=== PATIENT | female | born 1935 | race Caucasian/White ===

== ENCOUNTER 2017-06-15 15:57 | Emergency (ER) | payer MEDICARE, BC ==
[2016-05-29 15:17] VITALS: Wt 77.1 kg
[~2017-06-15 15:57] MED LIST: ACET-2031 PO; ASP325 PO; ATOR40TA24 PO; AUG500 PO; AUG875 PO; BACDS PO; CIPR-326 PO; CRAN1CAP14 PO; CYCL10TA29 PO; DIPH-1 PO; DOXY150T6 PO; ENOX100D5 SQ; EYE VITAMIN; IBUP200C17 PO; LEV500 PO; LOR5 PO; MELO-149 PO; METH-543 PO; OCU PO; OM-31CAP PO; OMEP-218 PO; OMEP10CA38 PO; OXYC-865 PO; PARO-46 PO; PARO10TA78 PO; PER PO; PHENA200 PO; PRE20 PO; SIMV-44 PO; TRAM-420 PO; VIT1CAPS38 PO; WARF-1 PO; WARF2.5T11 PO
--- NOTE | 2017-06-15 15:59 | ER Report ---
History and Physical Time Seen By MD: 15:58 (MATTJAIRON YOUNG DO) HPI/ROS CHIEF COMPLAINT: fell HISTORY OF PRESENT ILLNESS: PT states that she was at her kitchen sink and turned and fell into the cabinet door. Hit her right upper cheek/lip. Pt unsure how she fell. Pt not sure of last tetnus shot. PT denies neck pain. + headache. Pt noted to have abrasion under right nares. while pt was talking was found to have some blood on her teeth. Pt was found to have 1cm laceration inner upper lip on right. Pt denies any feeling of loose teeth. pt denies cp, abd pain or weakness. no visiual changes REVIEW OF SYSTEMS: Constitutional: No fever, no chills. Eyes: No discharge. ENT: No sore throat. + pain right cheek/zygoma; + pain nose Cardiovascular: No chest pain, no palpitations. Respiratory: No cough, no shortness of breath. Gastrointestinal: No abdominal pain, no vomiting. Genitourinary: No hematuria. Musculoskeletal: No back pain. Skin: No rashes. Neurological: No headache. (MATTJAIRON YOUNG DO) Allergies: Coded Allergies: cefaclor (Verified Allergy, Intermediate, HIVES, 08/07/16) erythromycin base (Verified Allergy, Intermediate, HIVES, 08/07/16) Home Meds Active Scripts Paroxetine Hcl (PAROXETINE HCL) 20 Mg Tablet, 20 MG PO HS, #30 TAB Prov:ALO CRUZ MD 12/31/15 Reported Medications Ferrous Sulfate (FERROUS SULFATE) 325 Mg Tablet, 325 MG PO BID 06/15/17 Atorvastatin Calcium (ATORVASTATIN CALCIUM) 40 Mg Tablet, 1 TAB PO QDAY, TAB 06/15/17 Cranberry Conc/Ascorbic Acid (CRANBERRY + VIT C SOFTGEL) 1 Each Capsule, 1 EACH PO BID 09/18/12 Vit C/Anjelica Ac/Lut/Copper/Znox (PRESERVISION SOFTGEL) 1 Each Capsule, 1 EACH PO BID 09/18/12 Discontinued Scripts Tramadol Hcl (TRAMADOL HCL) 50 Mg Tablet, 50 MG PO Q4-6H Y for PAIN, #21 TAB Prov:JAIRON ALLISON DO 08/07/16 Methocarbamol (ROBAXIN-750) 750 Mg Tablet, 750 MG PO Q6-8H Y for MUSCLE SPASMS, #21 TAB Prov:JAIRON ALLISON DO 08/07/16 Past Medical/Surgical History Pmhx: migraines, hyperlipidemia, oxygen at night, pneumonia, reflux, fracture of the left hand, occasional alcohol use, depression, DVT. Pshx: appendectomy, tonsillectomy. (JAIRON ALLISON DO) Reviewed Nurses Notes: Yes Old Medical Records Reviewed: Yes (JAIRON ALLISON DO) Hx Smoking: No Hx Substance Use Disorder: No Hx Alcohol Use: Yes (COUPLE A MONTH) (JAIRON ALLISON DO) Constitutional Vital Sign - Last 24 Hours 06/15/17 06/15/17 06/15/17 06/15/17 16:00 16:01 16:27 16:57 Temp 97.9 Pulse 94 92 101 Resp 17 5 B/P (MAP) 157/90 (112) 157/90 Pulse Ox 93 90 87 O2 Delivery Room Air 06/15/17 06/15/17 06/15/17 06/15/17 17:27 17:57 18:02 18:19 Pulse 111 98 103 Resp 15 47 21 Pulse Ox 89 92 06/15/17 06/15/17 20:12 20:20 Pulse 90 85 Resp 19 16 B/P (MAP) 163/93 (116) 168/82 (110) Pulse Ox 95 95 O2 Delivery Room Air (NORMA PEREZ DO) Physical Exam General Appearance: The patient is alert, has no immediate need for airway protection and no signs of toxicity. Eyes: Pupils equal and round no pallor or injection, EOMI ENT: no pharyngeal erythema or exudates, Mucous membranes are moist, TM are nl b/l, neg hemotympanums, No septal hematoma noted; +1cm laceration identified in upper inner lip on tooth line Respiratory: There are no retractions, lungs are clear to auscultation. Cardiovascular: Regular rate and rhythm. pulses are equal and symmetrical Gastrointestinal: Abdomen is soft and non tender, no masses, bowel sounds normal, no guarding, no rigidity or rebound Neurological: Cranial nerves II-XII grossly intact, no sensory or motor loss, no pronator drift or dysmeteria Skin: Warm and dry, no rashes. Musculoskeletal: Neck is supple non tender, no vertebral tenderness Extremities are nontender, no nswollen and have full range of motion. DIFFERENTIAL DIAGNOSIS: After history and physical exam differential diagnosis was considered for lip laceartion, facial fx, cervical fx, intracranial injury (LAURORA,JAIRON V DO) Medical Decision Making Data Points Result Diagram: 06/15/17 1721 06/15/17 1721 Laboratory Hematology Test 06/15/17 17:21 Red Blood Count 5.72 M/uL (4.17-5.56) Mean Corpuscular Volume 86.9 fL (80.0-96.0) Mean Corpuscular Hemoglobin 28.7 pg (26.0-33.0) Mean Corpuscular Hemoglobin Concent 33.0 g/dL (32.0-36.0) Red Cell Distribution Width 15.3 % (11.5-14.5) Mean Platelet Volume 8.7 fL (7.2-11.1) Neutrophils (%) (Auto) 75.7 % (39.4-72.5) Lymphocytes (%) (Auto) 12.8 % (17.6-49.6) Monocytes (%) (Auto) 8.6 % (4.1-12.4) Eosinophils (%) (Auto) 2.3 % (0.4-6.7) Basophils (%) (Auto) 0.6 % (0.3-1.4) Nucleated RBC Relative Count (auto) 0.0 /100WBC Neutrophils # (Auto) 7.0 K/uL (2.0-7.4) Lymphocytes # (Auto) 1.2 K/uL (1.3-3.6) Monocytes # (Auto) 0.8 K/uL (0.3-1.0) Eosinophils # (Auto) 0.2 K/uL (0.0-0.5) Basophils # (Auto) 0.1 K/uL (0.0-0.1) Nucleated RBC Absolute Count (auto) 0.00 K/uL Prothrombin Time 12.0 seconds (12.0-14.4) Prothromb Time International Ratio 0.89 Activated Partial Thromboplast Time 28 seconds (23-35) Sodium Level 137 mmol/L (137-145) Potassium Level 3.8 mmol/L (3.5-5.0) Chloride Level 103 mmol/L (98-107) Carbon Dioxide Level 26 mmol/L (22-31) Blood Urea Nitrogen 16 mg/dl (7-18) Creatinine 0.70 mg/dl (0.52-1.04) Glomerular Filtration Rate Calc > 60.0 Random Glucose 109 mg/dl (75-110) Calcium Level 9.4 mg/dl (8.4-10.2) Total Bilirubin 0.4 mg/dl (0.2-1.3) Aspartate Amino Transf (AST/SGOT) 24 U/L (0-35) Alanine Aminotransferase (ALT/SGPT) 43 U/L (0-56) Alkaline Phosphatase 116 U/L (0-126) Troponin I < 0.012 ng/ml Total Protein 7.1 gm/dl (6.3-8.2) Albumin 3.9 g/dl (3.5-5.0) Chemistry Test 06/15/17 17:21 White Blood Count 9.2 k/uL (4.5-11.0) Red Blood Count 5.72 M/uL (4.17-5.56) Hemoglobin 16.4 g/dL (12.0-16.0) Hematocrit 49.7 % (34.0-47.0) Mean Corpuscular Volume 86.9 fL (80.0-96.0) Mean Corpuscular Hemoglobin 28.7 pg (26.0-33.0) Mean Corpuscular Hemoglobin Concent 33.0 g/dL (32.0-36.0) Red Cell Distribution Width 15.3 % (11.5-14.5) Platelet Count 190 K/uL (150-450) Mean Platelet Volume 8.7 fL (7.2-11.1) Neutrophils (%) (Auto) 75.7 % (39.4-72.5) Lymphocytes (%) (Auto) 12.8 % (17.6-49.6) Monocytes (%) (Auto) 8.6 % (4.1-12.4) Eosinophils (%) (Auto) 2.3 % (0.4-6.7) Basophils (%) (Auto) 0.6 % (0.3-1.4) Nucleated RBC Relative Count (auto) 0.0 /100WBC Neutrophils # (Auto) 7.0 K/uL (2.0-7.4) Lymphocytes # (Auto) 1.2 K/uL (1.3-3.6) Monocytes # (Auto) 0.8 K/uL (0.3-1.0) Eosinophils # (Auto) 0.2 K/uL (0.0-0.5) Basophils # (Auto) 0.1 K/uL (0.0-0.1) Nucleated RBC Absolute Count (auto) 0.00 K/uL Prothrombin Time 12.0 seconds (12.0-14.4) Prothromb Time International Ratio 0.89 Activated Partial Thromboplast Time 28 seconds (23-35) Glomerular Filtration Rate Calc > 60.0 Calcium Level 9.4 mg/dl (8.4-10.2) Total Bilirubin 0.4 mg/dl (0.2-1.3) Aspartate Amino Transf (AST/SGOT) 24 U/L (0-35) Alanine Aminotransferase (ALT/SGPT) 43 U/L (0-56) Alkaline Phosphatase 116 U/L (0-126) Troponin I < 0.012 ng/ml Total Protein 7.1 gm/dl (6.3-8.2) Albumin 3.9 g/dl (3.5-5.0) Coagulation Test 06/15/17 17:21 Prothrombin Time 12.0 seconds Prothromb Time International Ratio 0.89 Activated Partial Thromboplast Time 28 seconds (NORMA PEREZ DO) EKG/Imaging EKG Interpretation Sinus Tach @100 with first degree av block, pvc, lvh; similar to prior ekg on 10-20-16 Imaging see reports for details: Cervical: degenerative changes but nothing acute head: 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 The results of the study are EXAMINATION: MR brain without IV contrast HISTORY: Trouble finding words after a fall. COMPARISON: CT head of earlier today TECHNIQUE: Multi-planar, multi-sequence brain MRI was performed without IV contrast administration. FINDINGS: Brain volume: Mild generalized parenchymal atrophy. Sagittal midline structures: Normal. Ventricles: Normal in caliber for the degree of overlying cortical volume loss. Acute ischemic changes: None. Hemorrhage: There is some chronic hemosiderin deposition along the surface of the mid and upper cerebellum and extending along the basilar cisterns, compatible with sequela of remote hemorrhage. No evidence of acute intracranial hemorrhage. Masses / edema: None. Hillman-white: There is chronic encephalomalacia in the superior cerebellar vermis , compatible with old ischemia. White matter lesions: Scattered T2/FLAIR hyperintensity in the deep white matter bilaterally, compatible with chronic small vessel ischemic change. Vessels: Normal T2 flow voids along the central intracranial vasculature. Extra-axial: None. Calvarium / scalp: Negative. Skull base: Negative. Visualized sinuses / orbits: Mucosal thickening in the right maxillary sinus. Visualized upper neck: Negative. IMPRESSION: 1. No evidence of acute infarct or other acute intracranial pathology. 2. Mild parenchymal atrophy with chronic small vessel ischemic change. 2. Chronic ischemic changes in the superior cerebellum with some associated hemosiderin deposition, compatible with sequela of remote hemorrhage. The study was read by the radiologist. I viewed the images myself on the PACS system. (NORMA PEREZ DO) ED Course/Re-evaluation Clinical Indication for ER IV: IV Access ED Course 06/15/2017 4:31:49 pm Called to room by Nurse. PT was having some difficulty finding words for the nurse. On arrival to the room rechecked neuro exam and pt without facial droop, equal strength upper and lower 5/5, no pronator drift. Pt at this time is alert but did have trouble telling me her sons names "i cant remember" but could tell me that one is on vacation in [place], one is in [place] and one is in [place]. PT seems to be stumbling to find words "watch" but does find them just slower to respond. Discussed with pt my concern for possible stroke but pt denies. WIll start labs and send for stroke alert ct. 06/15/2017 5:28:54 pm PT now telling me that the cause of her fall was due to slipping on the rug in front of her sink. Pt does not recall the episode of confusion or that she was unable to tell me how she fell before. Awaiting imaging results. Unclear if pt has dementia, concussion or possible tia. 06/15/2017 5:49:52 pm Pt has old infarction on ct but no new bleed or acute findings. Pt did not know of her prior infarction. Pt seems more alert still no physical weakness. Will obtain MRI. Discussed the procedure with the patient and she seems to understand. told her her jewelary will need to be removed. 06/15/2017 6:01:14 pm Nurse came and told me that pt did not recall me talking to her just 15 minutes ago about her ct findngs. Went back in and pt is able to find her words but seems forgetful. MRI called in. 06/15/2017 6:02:40 pm signed out to dr. Perez pending mri (MATTHECTORJAIRON Walter MATA) ED Course Care was assumed at shift change with diagnostic MRI pending. Patient with altered mental status. Seems somewhat like dementia. Patient's mental status seems to be waxing and waning. Patient's MRI was negative for acute ischemic events. There is changes consistent with deep white matter disease. Patient also has some deposited hemosiderin which would suggest a previous bleed. I discussed the patient's results with herself and her son as well as her caregiver. I thought that she might benefit from an admission for observation for altered mental status changes, which she was reluctant to be admitted. Patient's discharged home. Her son and her caregiver advised to follow-up with Dr. Rose Macias geriatric specialist. Patient may need to have her driving privileges evaluated and relinquished. Patient needs further evaluation for dementia and potential treatment. Decision to Disposition Date: Jun 15, 2017 Decision to Disposition Time: 19:48 (NORMA PEREZ DO) Depart Departure Latest Vital Signs Vital Signs Date Time Temp Pulse Resp B/P (MAP) Pulse Ox O2 Delivery O2 Flow Rate FiO2 06/15/17 20:20 85 16 168/82 (110) 95 Room Air 06/15/17 16:01 97.9 (NORMA PEREZ DO) Impression: Primary Impression: Lip laceration Additional Impressions: Facial contusion Altered mental status, unspecified Dementia Condition: Improved Disposition: HOME OR SELF-CARE Referrals: ROSE MACIAS MD Patient Instructions: Facial Contusion (ED), Facial Laceration (ED) Additional Instructions: Follow-up with Dr. Rose Macias for evaluation of dementia and consideration of revoking driving privileges within 1-2 weeks Problem Qualifiers Primary Impression: Lip laceration Encounter type: initial encounter Qualified Codes: S01.511A - Laceration without foreign body of lip, initial encounter Additional Impressions: Facial contusion Encounter type: initial encounter Qualified Codes: S00.83XA - Contusion of other part of head, initial encounter Altered mental status, unspecified Altered mental status type: unspecified Qualified Codes: R41.82 - Altered mental status, unspecified Dementia Dementia type: unspecified type Dementia behavioral disturbance: without behavioral disturbance Qualified Codes: F03.90 - Unspecified dementia without behavioral disturbance JAIRON ALLISON V DO Jun 15, 2017 15:59 NORMA PEREZ DO Jun 15, 2017 19:54
--- NOTE | 2017-06-15 16:44 | EKG ---
FACILITY: [facility] PATIENT NAME: LOURDES VEE : [id number] MR: [id number] V: [id number] EXAM DATE: ORDERING PHYSICIAN: JAIRON ALLISON TECHNOLOGIST: LYNDSEY Barbosa Reason : SYNCOPE Blood Pressure : / mmHG Vent. Rate : 101 BPM Atrial Rate : 101 BPM P-R Int : 210 ms QRS Dur : 102 ms QT Int : 344 ms P-R-T Axes : 041 000 031 degrees QTc Int : 446 ms Sinus tachycardia with 1st degree AV block Premature ventricular complex Decreased R wave progression anteriorly Abnormal ECG Confirmed by TESSA CRUZ ([id number]) on 06/15/2017 6:38:15 PM Referred By: KEEGAN Confirmed By:TESSA CRUZ
--- NOTE | 2017-06-15 17:21 | RADIOLOGY IMAGING REPORT ---
FACILITY: [facility] - [place] PATIENT NAME: Marie Dupont : 1935 MR: [id number] V: [id number] EXAM DATE: ORDERING PHYSICIAN: JAIRON ALLISON TECHNOLOGIST: Location: [facility] - [place] Patient: Marie Dupont : 1935 Visit/Account:[id number] Date of Sevice: 06/15/2017 EXAMINATION: CT head without IV contrast HISTORY: Fall. TECHNIQUE: Axial CT images of the head were obtained from the vertex to the skull base without IV c ontrast, with coronal and sagittal 2D reconstructed images. One of the following dose optimization techniques was utilized in the performance of this exam: Autom ated exposure control; adjustment of the mA and/or kV according to the patient's size; or use of an i terative reconstruction technique. Specific details can be referenced in the facility's radiology C T exam operational policy. COMPARISON: 08/07/2016. FINDINGS: There is mild age-appropriate parenchymal volume loss, with stable patchy low attenuation throughout the deep white matter, compatible with chronic small vessel ischemic change. Stable small focus of ch ronic encephalomalacia along the superior cerebellar vermis, compatible with old infarct. No CT evidence of intracranial hemorrhage, mass lesion, or acute infarct. No midline shift or extra-a xial fluid collections. Hillman-white differentiation is maintained. The calvarium is intact. No skull fracture. IMPRESSION: 1. No CT evidence of acute intracranial pathology. 2. 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 Report Dictated By: Shaggy Piedra MD at 06/15/2017 5:08 PM Report E-Signed By: Shaggy Piedra MD at 06/15/2017 5:18 PM WSN:[id number]
--- NOTE | 2017-06-15 17:26 | RADIOLOGY IMAGING REPORT ---
FACILITY: [facility] PATIENT NAME: Marie Dupont : 1935 MR: [id number] V: [id number] EXAM DATE: ORDERING PHYSICIAN: JAIRON ALLISON TECHNOLOGIST: Location: [facility] Patient: Marie Dupont : 1935 Visit/Account:[id number] Date of Sevice: 06/15/2017 EXAMINATION: CT facial bones without IV contrast HISTORY: Fall. Technique: Axial CT images of the facial bones were obtained without IV contrast, from the superior o rbits through the mandible, with coronal and sagittal 2D reconstructed images. One of the following dose optimization techniques was utilized in the performance of this exam: Autom ated exposure control; adjustment of the mA and/or kV according to the patient's size; or use of an i terative reconstruction technique. Specific details can be referenced in the facility's radiology C T exam operational policy. COMPARISON: CT head 08/07/2016. FINDINGS: There is stable mild chronic irregularity of both nasal bones which may relate to old trauma. No acut e nasal bone fracture. The bony orbits are intact. The zygomatic arches and pterygoid plates are unremarkable. The maxilla and mandible are intact. Norm al alignment at the temporomandibular joints. Moderate mucosal thickening in the right maxillary sinus. The paranasal sinuses and mastoid air cells are otherwise unopacified. The skull base is intact. Soft tissue swelling along the right cheek and upper lip. IMPRESSION: 1. No evidence of acute facial fracture. 2. Mild chronic appearing irregularity of both nasal bones may relate to old trauma but is unchanged from the prior exam. 3. Soft tissue swelling along the right cheek and upper lip. 4. Mucosal thickening in the right maxillary sinus. Report Dictated By: Shaggy Piedra MD at 06/15/2017 5:18 PM Report E-Signed By: Shaggy Piedra MD at 06/15/2017 5:23 PM WSN:[id number]
[2017-06-15 17:28] LABS: PLATELET COUNT, AUTOMATED 190 K/uL (150-450)
--- NOTE | 2017-06-15 17:29 | RADIOLOGY IMAGING REPORT ---
FACILITY: [facility] - [place], [place] PATIENT NAME: Marie Dupont : 1935 MR: [id number] V: [id number] EXAM DATE: ORDERING PHYSICIAN: JAIRON ALLISON TECHNOLOGIST: Location: [facility] [place] Patient: Marie Dupont : 1935 Visit/Account:[id number] Date of Sevice: 06/15/2017 EXAMINATION: CT cervical spine without IV contrast HISTORY: Fall. TECHNIQUE: Thin axial CT images of the cervical spine were obtained without IV contrast, with sagit thierry and coronal 2D reconstructed images. One of the following dose optimization techniques was utilized in the performance of this exam: Autom ated exposure control; adjustment of the mA and/or kV according to the patient's size; or use of an i terative reconstruction technique. Specific details can be referenced in the facility's radiology C T exam operational policy. COMPARISON: 08/07/2016. FINDINGS: The cervical spine is negative for acute fracture or subluxation. Vertebral body height is maintained . Stable alignment. There is stable mild chronic anterolisthesis of C3 on C4 measuring 3 mm, and C4 on C5 measuring 3 mm. Stable spondylotic changes. There is moderate disc space narrowing at C5-C6 and C6-C7. Multilevel fac et arthropathy bilaterally. The dens is intact. Normal alignment at the craniocervical junction. IMPRESSION: 1. No acute osseous findings along the cervical spine. 2. Stable chronic degenerative changes, greatest at C5-C6 and C6-C7. Report Dictated By: Shaggy Piedra MD at 06/15/2017 5:23 PM Report E-Signed By: Shaggy Piedra MD at 06/15/2017 5:25 PM WSN:[id number]
[2017-06-15 17:38] LABS: INR 0.89
[2017-06-15] MEDS ORDERED: ATOR40TA69 PO (17:49)
[2017-06-15] MEDS ORDERED: FERR-53 PO (17:49)
[2017-06-15] MEDS ORDERED: GADOBENATE 529MG/1ML 15ML VIAL IVP ONE (18:25)
[2017-06-15] MEDS ORDERED: NS 0.9% 20 ML SDV 40 ML ONE (18:25)
--- NOTE | 2017-06-15 19:33 | RADIOLOGY IMAGING REPORT ---
FACILITY: [facility] - [place] PATIENT NAME: Marie Dupont : 1935 MR: [id number] V: [id number] EXAM DATE: ORDERING PHYSICIAN: JAIRON ALLISON TECHNOLOGIST: Location: [facility] - [place] Patient: Marie Dupont : 1935 Visit/Account:[id number] Date of Sevice: 06/15/2017 EXAMINATION: MR brain without IV contrast HISTORY: Trouble finding words after a fall. COMPARISON: CT head of earlier today TECHNIQUE: Multi-planar, multi-sequence brain MRI was performed without IV contrast administration. FINDINGS: Brain volume: Mild generalized parenchymal atrophy. Sagittal midline structures: Normal. Ventricles: Normal in caliber for the degree of overlying cortical volume loss. Acute ischemic changes: None. Hemorrhage: There is some chronic hemosiderin deposition along the surface of the mid and upper cere bellum and extending along the basilar cisterns, compatible with sequela of remote hemorrhage. No gomez dence of acute intracranial hemorrhage. Masses / edema: None. Hillman-white: There is chronic encephalomalacia in the superior cerebellar vermis, compatible with old ischemia. White matter lesions: Scattered T2/FLAIR hyperintensity in the deep white matter bilaterally, compat ible with chronic small vessel ischemic change. Vessels: Normal T2 flow voids along the central intracranial vasculature. Extra-axial: None. Calvarium / scalp: Negative. Skull base: Negative. Visualized sinuses / orbits: Mucosal thickening in the right maxillary sinus. Visualized upper neck: Negative. IMPRESSION: 1. No evidence of acute infarct or other acute intracranial pathology. 2. Mild parenchymal atrophy with chronic small vessel ischemic change. 2. Chronic ischemic changes in the superior cerebellum with some associated hemosiderin deposition, c ompatible with sequela of remote hemorrhage. Report Dictated By: Shaggy Piedra MD at 06/15/2017 7:22 PM Report E-Signed By: Shaggy Piedra MD at 06/15/2017 7:29 PM WSN:[id number]
[2017-06-15 20:20] VITALS: BP 168/82
--- NOTE | 2017-06-15 20:46 | RADIOLOGY IMAGING REPORT ---
FACILITY: [facility] PATIENT NAME: Marie Dupont : 1935 MR: [id number] V: [id number] EXAM DATE: ORDERING PHYSICIAN: JAIRON ALLISON TECHNOLOGIST: Location: [facility] Patient: Marie Dupont : 1935 Visit/Account:[id number] Date of Sevice: 06/15/2017 EXAMINATION: MRA head without IV contrast HISTORY: Trouble finding words after a fall. COMPARISON: MR brain without IV contrast and CT head without IV contrast performed earlier today TECHNIQUE: [id number]-flight angiography was performed in the axial plane on the [place] of [place] without IV edith olinium. The exam was tailored for assessment of the [place] of [place] only. Only limited sequences were obtai adam of the rest of the brain. FINDINGS: Petrous carotids: Negative. Carotid siphons / bifurcations: Negative. Anterior / Posterior communicating arteries: Negative. Anterior cerebral arteries: Negative. Middle cerebral arteries: Negative. Intra-cranial vertebral arteries: Negative. Basilar artery: Negative. PICA / AICA / SCA / P[employer]BER: Negative. IMPRESSION: Unremarkable brain MRA. No evidence of vascular occlusive disease, aneurysm, or stenosis. Report Dictated By: Shaggy Piedra MD at 06/15/2017 8:39 PM Report E-Signed By: Shaggy Piedra MD at 06/15/2017 8:42 PM WSN:[id number]
--- NOTE | 2017-06-15 20:57 | RADIOLOGY IMAGING REPORT ---
FACILITY: [facility] PATIENT NAME: Marie Dupont : 1935 MR: [id number] V: [id number] EXAM DATE: ORDERING PHYSICIAN: NORMA SAL TECHNOLOGIST: Location: [facility] - [place] Patient: Marie Dupont : 1935 Visit/Account:[id number] Date of Sevice: 06/15/2017 EXAMINATION: MRA of the neck without IV contrast MRA of the neck with IV contrast HISTORY: Confusion. COMPARISON: None. TECHNIQUE: A preliminary fat suppressed axial sequence was obtained in the mid-upper neck (for asses sment of dissection) followed by non-gadolinium enhanced 3D-time of flight angiography in the axial p israel on the carotid bifurcations. The patient received a bolus of intravenous gadolinium during which coronal 3D-time of flight angiography was performed from the aortic arch through the [place] of [place] s. 3D and 2D sagittal and coronal reformatted images were obtained form the source data. Application Design Engineer images have been stored on PACS. Stenosis of the internal carotid arteries are calculated using MELANIE CET criteria. Contrast: 15 mL of IV MultiHance FINDINGS: Image quality is partially degraded by patient motion artifact. Angiographic Findings: Aortic arch / great vessel origins: Negative. Right common carotid: Negative. Right internal carotid: Mildly tortuous. Patent and normal in caliber, without evidence of stenosis. Right external carotid: Negative. Left common carotid: Negative. Left internal carotid: Mildly tortuous. Patent and normal in caliber, without evidence of stenosis. Left external carotid: Negative. Vertebrals / basilar: Negative. [place]: Negative. Non-angiographic Findings: None significant. IMPRESSION: Normal MRA of the neck, allowing for mild motion artifact.. Report Dictated By: Shaggy Piedra MD at 06/15/2017 8:48 PM Report E-Signed By: Shaggy Piedra MD at 06/15/2017 8:53 PM WSN:[id number]
== END 2017-06-15 20:23 | disposition home or self-care (01) ==
LOC: ER 16:12
DX: S01.511A Laceration without foreign body of lip, initial encounter (principal); S00.31XA Abrasion of nose, initial encounter; R41.82 Altered mental status, unspecified; F03.90 Unspecified dementia, unspecified severity, without behavioral disturbance, psychotic disturbance, mood disturbance, and anxiety; W01.198A Fall on same level from slipping, tripping and stumbling with subsequent striking against other object, initial encounter; Y93.E9 Activity, other interior property and clothing maintenance; Y92.000 Kitchen of unspecified non-institutional (private) residence as the place of occurrence of the external cause; Y99.8 Other external cause status
CPT/HCPCS: 36415; 70450; 70486; 70544; 70549; 70551; 72125; 84484; 85025; 85610; 85730; 93005; 99284; A9577; J7050; 82040; 82247; 82310; 82374; 82435; 82565; 82947; 84075; 84132; 84155; 84295; 84450; 84460; 84520

== ENCOUNTER 2017-08-04 09:22 | Inpatient (IN) | payer MEDICARE, BC ==
[~2017-08-04] VITALS: Ht 170.2 cm; Wt 77.4 kg
[~2017-08-04 09:22] MED LIST changes: +ATOR40TA69 PO; +FERR-53 PO
--- NOTE | 2017-08-04 09:30 | ER Report ---
History and Physical Time Seen By MD: 09:30 HPI/ROS 82 y/o female presents with pain and swelling in her LLE. No chest pain, and no SOB. No PE risk factors, but caregiver says she site on a tall stool most of the day. Pain and swelling is such that she is almost unable to ambulate. SHe lives alone. Has a caregiver Fri-Friday for [id number]. No other complaints. No recent trauma. No fever/chills. Remainder of the 14 system rev: Yes Allergies: Coded Allergies: cefaclor (Verified Allergy, Intermediate, HIVES, 08/04/17) erythromycin base (Verified Allergy, Intermediate, HIVES, 08/04/17) Home Meds Active Scripts Paroxetine Hcl (PAROXETINE HCL) 20 Mg Tablet, 20 MG PO HS, #30 TAB Prov:ALO CRUZ MD 12/31/15 Reported Medications Ferrous Sulfate (FERROUS SULFATE) 325 Mg Tablet, 325 MG PO BID 06/15/17 Atorvastatin Calcium (ATORVASTATIN CALCIUM) 40 Mg Tablet, 1 TAB PO QDAY, TAB 06/15/17 Cranberry Conc/Ascorbic Acid (CRANBERRY + VIT C SOFTGEL) 1 Each Capsule, 1 EACH PO BID 09/18/12 Vit C/Anjelica Ac/Lut/Copper/Znox (PRESERVISION SOFTGEL) 1 Each Capsule, 1 EACH PO BID 09/18/12 Reviewed Nurses Notes: Yes Old Medical Records Reviewed: Yes Hx Smoking: No Hx Substance Use Disorder: No Hx Alcohol Use: Yes (COUPLE A MONTH) Constitutional Vital Sign - Last 24 Hours 08/04/17 08/04/17 08/04/17 08/04/17 09:28 09:32 10:00 10:30 Temp 97.6 Pulse 108 98 Resp 16 B/P (MAP) 147/94 147/94 (111) 144/91 (108) 130/86 (101) Pulse Ox 90 93 O2 Delivery Room Air 08/04/17 11:00 Pulse 94 B/P (MAP) 129/89 (102) Pulse Ox 92 Physical Exam GE: Alert and oriented in NAD HEENT: PERRL CV: Tachycardic, RR, no m/r/g Lungs: cta b/l Extremities: LLE enlarged with TTP from the inguinal region to the foot. Pulses symmetric DDX: DVT, PE, edema Medical Decision Making Data Points Result Diagram: 08/04/17 1030 08/04/17 1030 Laboratory Hematology Test 08/04/17 10:30 Red Blood Count 5.44 M/uL (4.17-5.56) Mean Corpuscular Volume 85.2 fL (80.0-96.0) Mean Corpuscular Hemoglobin 29.1 pg (26.0-33.0) Mean Corpuscular Hemoglobin Concent 34.1 g/dL (32.0-36.0) Red Cell Distribution Width 15.5 % (11.5-14.5) Mean Platelet Volume 8.8 fL (7.2-11.1) Neutrophils (%) (Auto) 75.5 % (39.4-72.5) Lymphocytes (%) (Auto) 6.9 % (17.6-49.6) Monocytes (%) (Auto) 15.9 % (4.1-12.4) Eosinophils (%) (Auto) 0.9 % (0.4-6.7) Basophils (%) (Auto) 0.8 % (0.3-1.4) Nucleated RBC Relative Count (auto) 0.0 /100WBC Neutrophils # (Auto) 7.2 K/uL (2.0-7.4) Lymphocytes # (Auto) 0.7 K/uL (1.3-3.6) Monocytes # (Auto) 1.5 K/uL (0.3-1.0) Eosinophils # (Auto) 0.1 K/uL (0.0-0.5) Basophils # (Auto) 0.1 K/uL (0.0-0.1) Nucleated RBC Absolute Count (auto) 0.00 K/uL Sodium Level 136 mmol/L (137-145) Potassium Level 3.5 mmol/L (3.5-5.0) Chloride Level 100 mmol/L (98-107) Carbon Dioxide Level 23 mmol/L (22-31) Blood Urea Nitrogen 14 mg/dl (7-18) Creatinine 0.60 mg/dl (0.52-1.04) Glomerular Filtration Rate Calc > 60.0 Random Glucose 147 mg/dl (75-110) Calcium Level 9.9 mg/dl (8.4-10.2) Total Bilirubin 1.3 mg/dl (0.2-1.3) Aspartate Amino Transf (AST/SGOT) 28 U/L (0-35) Alanine Aminotransferase (ALT/SGPT) 42 U/L (0-56) Alkaline Phosphatase 140 U/L (0-126) Total Protein 6.9 gm/dl (6.3-8.2) Albumin 3.6 g/dl (3.5-5.0) Chemistry Test 08/04/17 10:30 White Blood Count 9.5 k/uL (4.5-11.0) Red Blood Count 5.44 M/uL (4.17-5.56) Hemoglobin 15.8 g/dL (12.0-16.0) Hematocrit 46.4 % (34.0-47.0) Mean Corpuscular Volume 85.2 fL (80.0-96.0) Mean Corpuscular Hemoglobin 29.1 pg (26.0-33.0) Mean Corpuscular Hemoglobin Concent 34.1 g/dL (32.0-36.0) Red Cell Distribution Width 15.5 % (11.5-14.5) Platelet Count 167 K/uL (150-450) Mean Platelet Volume 8.8 fL (7.2-11.1) Neutrophils (%) (Auto) 75.5 % (39.4-72.5) Lymphocytes (%) (Auto) 6.9 % (17.6-49.6) Monocytes (%) (Auto) 15.9 % (4.1-12.4) Eosinophils (%) (Auto) 0.9 % (0.4-6.7) Basophils (%) (Auto) 0.8 % (0.3-1.4) Nucleated RBC Relative Count (auto) 0.0 /100WBC Neutrophils # (Auto) 7.2 K/uL (2.0-7.4) Lymphocytes # (Auto) 0.7 K/uL (1.3-3.6) Monocytes # (Auto) 1.5 K/uL (0.3-1.0) Eosinophils # (Auto) 0.1 K/uL (0.0-0.5) Basophils # (Auto) 0.1 K/uL (0.0-0.1) Nucleated RBC Absolute Count (auto) 0.00 K/uL Glomerular Filtration Rate Calc > 60.0 Calcium Level 9.9 mg/dl (8.4-10.2) Total Bilirubin 1.3 mg/dl (0.2-1.3) Aspartate Amino Transf (AST/SGOT) 28 U/L (0-35) Alanine Aminotransferase (ALT/SGPT) 42 U/L (0-56) Alkaline Phosphatase 140 U/L (0-126) Total Protein 6.9 gm/dl (6.3-8.2) Albumin 3.6 g/dl (3.5-5.0) EKG/Imaging Imaging US LLE: almost fully occlusive DVT from the left RAILCAR SWITCHMAN to the calf CTA: No PE ED Course/Re-evaluation ED Course New diagnosis of DVT, almost fully occlusive. No PE on CTA. Given Xarolto 15mg in the ED with the plan to discharge the patient to home. However, after watching the patient ambulate, she is at risk for falling due to the pain and swelling in her left leg. Will need admission for inability to ambulate safely in the setting of a DVT. Decision to Disposition Date: Aug 04, 2017 Decision to Disposition Time: 14:03 Depart Departure Latest Vital Signs Vital Signs Date Time Temp Pulse Resp B/P (MAP) Pulse Ox O2 Delivery O2 Flow Rate FiO2 08/04/17 11:00 94 129/89 (102) 92 08/04/17 09:28 97.6 16 Room Air Impression: Primary Impression: DVT (deep venous thrombosis) Condition: Improved Disposition: Admitted from ER Problem Qualifiers Primary Impression: DVT (deep venous thrombosis) DVT location: lower extremity Affected thrombotic vein of extremity: femoral Chronicity: acute Laterality: left Qualified Codes: I82.412 - Acute embolism and thrombosis of left femoral vein WEI MARK MD Aug 04, 2017 09:30
[2017-08-04 10:43] LABS: PLATELET COUNT, AUTOMATED 167 K/uL (150-450)
[2017-08-04] MEDS ORDERED: RIVAROXABAN 10 MG TAB PO ONE ×2 (11:30→11:35)
--- NOTE | 2017-08-04 11:35 | RADIOLOGY IMAGING REPORT ---
FACILITY: [facility] - [place], [place] PATIENT NAME: Marie Dupont : 1935 MR: [id number] V: [id number] EXAM DATE: ORDERING PHYSICIAN: WEI MARK TECHNOLOGIST: Location: [facility] - [place] Patient: Marie Dupont : 1935 Visit/Account:[id number] Date of Sevice: 08/04/2017 Exam type: VENOUS DOPP LOW LEFT EXTREMITY History: swollen left leg Comparison: April 09, 2016. Findings: Left common femoral vein, greater saphenous vein, superficial femoral vein, popliteal vein, peroneal vein posterior tibial vein are all noncompressible consistent with DVT. The left anterior tibial vei n was partially compressible. There is extensive edema in the left calf IMPRESSION: 1. Extensive DVT throughout the left lower extremity from the left common femoral vein into the calf veins as detailed above Results were called to WEI MARK at 08/04/2017 11:31 AM. Report Dictated By: Martine Redmond MD at 08/04/2017 11:24 AM Report E-Signed By: Martine Redmond MD at 08/04/2017 11:31 AM WSN:[email or web address]
[2017-08-04] MEDS ORDERED: IOPAMIDOL 76% 75 ML INFUS BTL 75 ML ONE (11:56)
--- NOTE | 2017-08-04 12:53 | RADIOLOGY IMAGING REPORT ---
FACILITY: [facility] - [place] PATIENT NAME: Marie Dupont : 1935 MR: [id number] V: [id number] EXAM DATE: ORDERING PHYSICIAN: WEI MARK TECHNOLOGIST: Location: [facility] - [place] Patient: Marie Dupont : 1935 Visit/Account:[id number] Date of Sevice: 08/04/2017 CT angiogram chest with contrast Indication: Diagnosed DVT with shortness of breath and tachycardia. Comparison: 05/27/2016. Technique: Axial CT images are obtained through the chest after administration of 75 mL Isovue 370 IV contrast. Reformatted coronal and sagittal images were reviewed as well as coronal MIP images. One of the following dose optimization techniques was utilized in the performance of this exam: auto mated exposure control; adjustment of the mA and/or kV according to the patient's size; or use of an iterative reconstruction technique. Specific details can be referenced in the facility's radiology C T exam operational policy. FINDINGS: No evidence of filling defect within the pulmonary vasculature to suggest pulmonary embolus. The heart is mildly diffusely enlarged without pericardial effusion. The left ventricle measures 4. C entimeters and the right ventricle measures 4.2 cm. The aorta shows no aneurysm or dissection. The me diastinum and hilar regions show no enlarged lymph nodes or abnormal density. The left lower lobe does show early consolidation. This appears stable previous exam. Mild dependent atelectasis seen bilaterally. No other areas of consolidation. No pneumothorax, pleural effusion or d iscrete nodule. The airways are clear. Bony structures show no acute fractures or discrete lesions. Chest wall shows no enlarged axillary ly mph nodes or masses. The right thyroid again shows a 2.8 cm hypodense nodule. Moderate hiatal hernia is again present. Question of a small gallstone which is faintly visualized. T he upper abdomen is otherwise unremarkable. IMPRESSION: 1. No evidence of pulmonary embolus. 2. Early consolidation in the left lower lobe. This is unchanged from the previous exam and most like ly due to atelectasis and less likely pneumonia. 3. Stable mild cardiomegaly. 4. Probable cholelithiasis. 5. Stable moderate hiatal hernia. 6. Continued 2.8 cm right thyroid hypodense nodule. ACR recommendations for incidental thyroid nodule and CT or MRI without suspicious features, no nodule invasion or lymphadenopathy: -Age less than 35 recommend thyroid ultrasound for nodule greater than or equal to 1 cm. No follow-up for nodules less than 1 cm. -Age greater than 35 recommend thyroid ultrasound for nodules greater than or equal to 1.5 cm. No fol low-up for nodules less than 1.5 cm. Report Dictated By: Hansel Wells at 08/04/2017 12:33 PM Report E-Signed By: Hansel Wells at 08/04/2017 12:48 PM WSN:[id number]
[2017-08-04 15:03] VITALS: BP 163/93
[2017-08-04] MEDS ORDERED: NS(*) 0.9% 1000 ML BAG 1,000 ML IV PRN (16:06)
--- NOTE | 2017-08-04 16:57 | History & Physical ---
History of Present Illness Chief Complaint Left leg pain and swelling. History of Present Illness The patient is an 82 year old female who presented to ER earlier today with her caregiver with complaints of L leg pain and swelling. The patient is unable to give any acute history due to short term memory issues. Per the EMR she has history of DVT of the left femoral vein and has been on warfarin in the past for this. She currently denies chest pain or shortness of breath. Per the ER notes, she was sitting on a tall stool for a prolonged period of time prior to developing symptoms. She is not currently on anticoagulants. In the ER, a venous doppler showed extensive clot in the left leg (see venogram report below). CTA of the chest did not show pulmonary embolism. The patient was unable to ambulate due to severe pain and swelling. She was recommended for admission. 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 (3) Thyroid cyst Status: Chronic (4) Hyperlipidemia Status: Chronic (5) Depression Status: Chronic (6) History of UTI Status: Resolved (7) History of pneumonia Status: Resolved (8) Hiatal hernia Status: Chronic Home Meds Active Scripts Paroxetine Hcl (PAROXETINE HCL) 20 Mg Tablet, 20 MG PO HS, #30 TAB Prov:ALO CRUZ MD 12/31/15 Reported Medications Ferrous Sulfate (FERROUS SULFATE) 325 Mg Tablet, 325 MG PO BID 06/15/17 Atorvastatin Calcium (ATORVASTATIN CALCIUM) 40 Mg Tablet, 1 TAB PO QDAY, TAB 06/15/17 Cranberry Conc/Ascorbic Acid (CRANBERRY + VIT C SOFTGEL) 1 Each Capsule, 1 EACH PO BID 09/18/12 Vit C/Anjelica Ac/Lut/Copper/Znox (PRESERVISION SOFTGEL) 1 Each Capsule, 1 EACH PO BID 09/18/12 Allergies: Coded Allergies: cefaclor (Verified Allergy, Intermediate, HIVES, 08/04/17) erythromycin base (Verified Allergy, Intermediate, HIVES, 08/04/17) Patient History: FH: SC (myocardial infarction) FH: bilateral hip replacements BROTHER OR SISTER FH: diverticulitis MOTHER, FH: total knee replacement BROTHER OR SISTER No pertinent family history BROTHER OR SISTER CHILD CHILD CHILD Other Social/Family Hx The patient is and lives at home alone with caretakers and help from her family. Hx Smoking: No Hx Alcohol Use: Yes (COUPLE A MONTH) Hx Substance Use Disorder: No History of IV Drug Use: No Review of Systems All Systems Reviewed/Normal: Yes, Except as Noted Neurological: Confusion, Other (Dementia.) Cardiovascular: No Chest Pain Respiratory: No Shortness of Breath, No Cough Musculoskeletal: Pain (L leg.) Psychiatric: Depression Exam Vital Signs Vital Signs Date Time Temp Pulse Resp B/P (MAP) Pulse Ox O2 Delivery O2 Flow Rate FiO2 08/04/17 16:05 90 Room Air 08/04/17 15:03 98.6 95 16 163/93 (116) General Appearance: Alert, Awake, No Acute Distress, Afebrile Neuro: No Gross deficits Eyes: PERRLA Cardiovascular: Regular Rate and Rhythm Respiratory: Clear to Auscultation GI: Abd Soft and Non-Tender Extremities: Warm, Perfused, Edema (L leg with tenderness to palpation of calf. Swelling extends into her thigh.) Integumentary: Generalized Fragile Skin Psych: Appropriate Mood & Affect Medical Decision Making Data Points Result Diagram: 08/04/17 1030 08/04/17 1030 Item Value Date Time Urine Color Yellow 12/31/15 1505 Urine Clarity Clear 12/31/15 1505 Urine pH 6.0 pH 12/31/15 1505 Urine Specific [place] 1.013 12/31/15 1505 Urine Protein Negative mg/dL 12/31/15 1505 Urine Glucose (UA) Negative mg/dL 12/31/15 1505 Urine Ketones 20 mg/dL H 12/31/15 1505 Urine Blood Negative 12/31/15 1505 Urine Nitrite Negative 12/31/15 1505 Urine Bilirubin Negative 12/31/15 1505 Urine Urobilinogen 2.0 mg/dL 12/31/15 1505 Urine Leukocyte Esterase Trace H 12/31/15 1505 Urine RBC 2 /HPF 12/31/15 1505 Urine WBC 9 /HPF 12/31/15 1505 Urine Squamous Epithelial Cells Many /LPF H 12/31/15 1505 Urine Transitional Epithelial Cells Moderate /LPF H 12/31/15 1505 Urine Bacteria Negative /HPF 12/31/15 1505 Urine Mucus Few /HPF 12/31/15 1505 Calcium Level 9.9 mg/dl 08/04/17 1030 Total Bilirubin 1.3 mg/dl 08/04/17 1030 Aspartate Amino Transf (AST/SGOT) 28 U/L 08/04/17 1030 Alanine Aminotransferase (ALT/SGPT) 42 U/L 08/04/17 1030 Alkaline Phosphatase 140 U/L H 08/04/17 1030 Total Protein 6.9 gm/dl 08/04/17 1030 Albumin 3.6 g/dl 08/04/17 1030 EKG / Imaging Imaging FACILITY: [facility] PATIENT NAME: Marie Dupont : 1935 MR: [id number] V: [id number] EXAM DATE: [id number] ORDERING PHYSICIAN: WEI MARK TECHNOLOGIST: Location: [facility] Patient: Marie Dupont : 1935 Visit/Account:[id number] Date of Sevice: 08/04/2017 Exam type: VENOUS DOPP LOW LEFT EXTREMITY History: swollen left leg Comparison: April 09, 2016. Findings: Left common femoral vein, greater saphenous vein, superficial femoral vein, popliteal vein, peroneal vein posterior tibial vein are all noncompressible consistent with DVT. The left anterior tibial vein was partially compressible. There is extensive edema in the left calf IMPRESSION: 1. Extensive DVT throughout the left lower extremity from the left common femoral vein into the calf veins as detailed above Results were called to WEI MARK at 08/04/2017 11:31 AM. Report Dictated By: Martine Redmond MD at 08/04/2017 11:24 AM Report E-Signed By: Martine Redmond MD at 08/04/2017 11:31 AM WSN:[id number] FACILITY: [facility] PATIENT NAME: Marie Dupont : 1935 MR: [id number] V: [id number] EXAM DATE: [id number] ORDERING PHYSICIAN: WEI MARK TECHNOLOGIST: Location: [facility] Patient: Marie Dupont : 1935 Visit/Account:[id number] Date of Sevice: 08/04/2017 CT angiogram chest with contrast Indication: Diagnosed DVT with shortness of breath and tachycardia. Comparison: 05/27/2016. Technique: Axial CT images are obtained through the chest after administration of 75 mL Isovue 370 IV contrast. Reformatted coronal and sagittal images were reviewed as well as coronal MIP images. One of the following dose optimization techniques was utilized in the performance of this exam: automated exposure control; adjustment of the mA and/ or kV according to the patient's size; or use of an iterative reconstruction technique. Specific details can be referenced in the facility's radiology CT exam operational policy. FINDINGS: No evidence of filling defect within the pulmonary vasculature to suggest pulmonary embolus. The heart is mildly diffusely enlarged without pericardial effusion. The left ventricle measures 4. Centimeters and the right ventricle measures 4.2 cm. The aorta shows no aneurysm or dissection. The mediastinum and hilar regions show no enlarged lymph nodes or abnormal density. The left lower lobe does show early consolidation. This appears stable previous exam. Mild dependent atelectasis seen bilaterally. No other areas of consolidation. No pneumothorax, pleural effusion or discrete nodule. The airways are clear. Bony structures show no acute fractures or discrete lesions. Chest wall shows no enlarged axillary lymph nodes or masses. The right thyroid again shows a 2.8 cm hypodense nodule. Moderate hiatal hernia is again present. Question of a small gallstone which is faintly visualized. The upper abdomen is otherwise unremarkable. IMPRESSION: 1. No evidence of pulmonary embolus. 2. Early consolidation in the left lower lobe. This is unchanged from the previous exam and most likely due to atelectasis and less likely pneumonia. 3. Stable mild cardiomegaly. 4. Probable cholelithiasis. 5. Stable moderate hiatal hernia. 6. Continued 2.8 cm right thyroid hypodense nodule. ACR recommendations for incidental thyroid nodule and CT or MRI without suspicious features, no nodule invasion or lymphadenopathy: -Age less than 35 recommend thyroid ultrasound for nodule greater than or equal to 1 cm. No follow-up for nodules less than 1 cm. -Age greater than 35 recommend thyroid ultrasound for nodules greater than or equal to 1.5 cm. No follow-up for nodules less than 1.5 cm. Report Dictated By: Hansel Wells at 08/04/2017 12:33 PM Report E-Signed By: Hansel Wells at 08/04/2017 12:48 PM WSN:[id number] Pre-Admit Course Medical Record Review: Yes Assessment and Plan Problems: (1) DVT (deep venous thrombosis) Status: Acute Assessment & Plan: Venous doppler shows extensive DVT throughout the left lower extremity from the left common femoral vein into the calf veins. The patient was started on Xarelto 15mg in the ER. Will continue. She is having significant pain with ambulation. Will elevate leg. (2) Hyperlipidemia Status: Chronic Assessment & Plan: She is on atorvastatin at home. Will continue. (3) Depression Status: Chronic Assessment & Plan: Continue paroxetine. (4) Dementia Status: Chronic Assessment & Plan: The patient has poor short term memory. She is not currently on any treatment. She does have a reservoir caretaker at home for several hours during the day. Time Spent on Plan of Care: < 30 min Copies to: ANI KOENIG MD Venous Thromboembolism VTE Risk Physician Assess for VTE Risk: Yes Patient's VTE Risk: High VTE Diagnostic Test 2 Days Prior to Admit: Yes Antithrombotics Is Pt On Any Antithrombotics?: Yes Exam Sepsis Risk: No Definite Risk Problem Qualifiers (1) DVT (deep venous thrombosis): DVT location: lower extremity Affected thrombotic vein of extremity: femoral Chronicity: acute Laterality: left Qualified Codes: I82.412 - Acute embolism and thrombosis of left femoral vein ALO CRUZ MD Aug 04, 2017 16:57
[2017-08-04] MEDS ORDERED: PRAZ2CAP26 PO (18:16)
[2017-08-04] MEDS ORDERED: ASCO-246 PO (18:20)
[2017-08-04] MEDS ORDERED: ASCO-183 PO (18:21)
[2017-08-04 18:58] VITALS: BP 133/94
[2017-08-04] MEDS: PARoxetine HCL 20 MG TAB PO SCH (20:55)
[2017-08-04] MEDS: PRAZOSIN HCL 1 MG CAP PO SCH (20:55)
[2017-08-04] MEDS: RIVAROXABAN 10 MG TAB PO SCH (20:56)
[2017-08-04 22:55] VITALS: BP 145/85
[2017-08-05 04:34] VITALS: BP 172/117
[2017-08-05 08:24] VITALS: BP 143/79
[2017-08-05] MEDS ORDERED: ATORVASTATIN 40 MG TAB PO SCH (09:00)
[2017-08-05 09:14] VITALS: Ht 170.2 cm; Wt 77.4 kg
[2017-08-05] MEDS: RIVAROXABAN 10 MG TAB PO SCH ×2 (09:28→21:11)
--- NOTE | 2017-08-05 13:01 | Hospitalist Progress Note ---
Subjective Progress Notes Subjective She reports less pain/able to ambulate better. Physical Exam Vital Signs Date Time Temp Pulse Resp B/P (MAP) Pulse Ox O2 Delivery O2 Flow Rate FiO2 08/05/17 10:30 84 08/05/17 09:40 Nasal Cannula 3.0 08/05/17 08:24 98.9 104 16 143/79 (100) Intake and Output 08/06/17 07:00 Intake Total 220 ml Balance 220 ml Intake Oral 220 ml # Voids 2 General Appearance: Alert, Awake Cardiovascular: Regular Rate and Rhythm Respiratory: Clear to Auscultation GI: Soft and Non-Tender Extremities: Warm, Perfused, Edema (left lower extremity to knee) Result Diagram: 08/04/17 1030 08/04/17 1030 Assessment and Plan Problems: (1) DVT (deep venous thrombosis) Status: Acute Assessment & Plan: Venous Doppler shows extensive DVT throughout the left lower extremity from the left common femoral vein into the calf veins. The patient was started on Xarelto 15mg PO BID. She was having significant pain with ambulation, but has improved. Will elevate leg. Will also have PT see. (2) Hyperlipidemia Status: Chronic Assessment & Plan: She is on atorvastatin at home. (3) Depression Status: Chronic Assessment & Plan: Continue paroxetine. (4) Dementia Status: Chronic Assessment & Plan: The patient has poor short term memory. She is not currently on any treatment. She does have a clinical radiologist at home for several hours during the day. Exam Sepsis Risk: No Definite Risk Problem Qualifiers (1) DVT (deep venous thrombosis): DVT location: lower extremity Affected thrombotic vein of extremity: femoral Chronicity: acute Laterality: left Qualified Codes: I82.412 - Acute embolism and thrombosis of left femoral vein TESSA CRUZ MD Aug 05, 2017 13:01
[2017-08-05 13:05] VITALS: BP 136/78
[2017-08-05 17:27] VITALS: BP 128/74
[2017-08-05] MEDS: ACETAMINOPHEN 325 MG TAB PO PRN (17:40)
[2017-08-05 19:33] VITALS: BP 117/66
[2017-08-05] MEDS: PRAZOSIN HCL 1 MG CAP PO SCH (21:10)
[2017-08-05] MEDS: PARoxetine HCL 20 MG TAB PO SCH (21:10)
[2017-08-06 04:42] VITALS: BP_SYST 117; BP_SYST 126; BP_DIAS 66; BP_DIAS 77
[2017-08-06 08:14] VITALS: BP 124/74
[2017-08-06] MEDS ORDERED: INFLUENZA VIRUS VAC 0.5 ML SYR IM ONLY ONE (09:00)
[2017-08-06] MEDS: RIVAROXABAN 10 MG TAB PO SCH ×2 (09:15→20:51)
[2017-08-06] MEDS: ACETAMINOPHEN 325 MG TAB PO PRN ×2 (13:55→20:50)
--- NOTE | 2017-08-06 14:06 | Hospitalist Progress Note ---
Subjective Progress Notes Subjective She isn't reporting pain. She got some sleep overnight. She was limited by leg pain yesterday with therapy. Physical Exam Vital Signs Date Time Temp Pulse Resp B/P (MAP) Pulse Ox O2 Delivery O2 Flow Rate FiO2 08/06/17 08:14 98.3 98 18 124/74 (91) 94 Nasal Cannula 2.0 Intake and Output 08/07/17 07:00 Intake Total 240 ml Balance 240 ml Intake Oral 240 ml # Voids 1 General Appearance: Alert, Awake, No Acute Distress Extremities: Warm, Pulses (Palpable DP pulse on the left), Perfused, Edema (2+ pitting in LLE to the groin with much swelling compared to the right. ) Result Diagram: 08/04/17 1030 08/04/17 1030 Assessment and Plan Problems: (1) DVT (deep venous thrombosis) Status: Acute Assessment & Plan: Venous Doppler shows extensive DVT throughout the left lower extremity from the left common femoral vein into the calf veins. She has much swelling and pitting edema in the entire left leg. The leg is well perfused on exam and she is reporting much improvement in pain. The patient was started on Xarelto 15mg PO BID. Continue work with therapy. (2) Hyperlipidemia Status: Chronic Assessment & Plan: She is on atorvastatin at home. (3) Depression Status: Chronic Assessment & Plan: Continue paroxetine. (4) Dementia Status: Chronic Assessment & Plan: The patient has poor short term memory. She is not currently on any treatment. She does have a digital court reporter at home for several hours during the day. Exam Sepsis Risk: No Definite Risk Problem Qualifiers (1) DVT (deep venous thrombosis): DVT location: lower extremity Affected thrombotic vein of extremity: femoral Chronicity: acute Laterality: left Qualified Codes: I82.412 - Acute embolism and thrombosis of left femoral vein SUKI BAH MD Aug 06, 2017 14:06
[2017-08-06 15:53] VITALS: BP 124/79
[2017-08-06 19:12] VITALS: BP 135/100
[2017-08-06] MEDS: PRAZOSIN HCL 1 MG CAP PO SCH (20:50)
[2017-08-06] MEDS: PARoxetine HCL 20 MG TAB PO SCH (20:51)
[2017-08-07 03:06] VITALS: BP 131/75
[2017-08-07 07:15] VITALS: BP 139/74
[2017-08-07] MEDS: RIVAROXABAN 10 MG TAB PO SCH (09:13)
[2017-08-07] MEDS: ACETAMINOPHEN 325 MG TAB PO PRN (09:13)
[2017-08-07] MEDS ORDERED: RIV10 PO (11:23)
--- NOTE | 2017-08-07 11:27 | Hospitalist Depart ---
Discharge Summary Reason for Hosp/Final Diag: (1) DVT (deep venous thrombosis) Status: Acute Hospital Course & Plan: Venous Doppler shows extensive DVT throughout the left lower extremity from the left common femoral vein into the calf veins. She has much swelling and pitting edema in the entire left leg. The leg is well perfused on exam and she is reporting much improvement in pain. The patient was started on Xarelto 15mg PO BID. She was working with Physical and Occupational therapy. They have recommended ongoing rehabilitative therapy. Thus , she was transferred to [facility]. (2) Hyperlipidemia Status: Chronic Hospital Course & Plan: She is on atorvastatin at home. (3) Depression Status: Chronic Hospital Course & Plan: Continue paroxetine. (4) Dementia Status: Chronic Hospital Course & Plan: The patient has poor short term memory. She is not currently on any treatment. She does have a cat hooker at home for several hours during the day. Departure Weight (Pounds): 170 Weight (Ounces): 9.0 Result Diagram: 08/04/17 1030 08/04/17 1030 Condition: Improved Discharge: [facility] PT/OT Follow Up For: PT For Strengthening, OT For ADL's Time Spent: > 30 min Discharge Instructions Home Meds Active Scripts Rivaroxaban (XARELTO 10 MG TAB (OR EQUIV)) 10 Mg Tablet, 15 MG PO BID for 30 Days, TAB Prov:TESSA CRUZ MD 08/07/17 Paroxetine Hcl (PAROXETINE HCL) 20 Mg Tablet, 20 MG PO HS, #30 TAB Prov:ALO CRUZ MD 12/31/15 Reported Medications Prazosin Hcl (PRAZOSIN HCL) 2 Mg Capsule, 2 MG PO HS, CAPSULE 08/04/17 Vit C/Anjelica Ac/Lut/Copper/Znox (PRESERVISION SOFTGEL) 1 Each Capsule, 1 EACH PO BID 09/18/12 Discontinued Reported Medications Ascorbic Acid (ASCORBIC ACID) 500 Mg Tablet, 500 MG PO QDAY 08/04/17 Ferrous Sulfate (FERROUS SULFATE) 325 Mg Tablet, 325 MG PO BID 06/15/17 Cranberry Conc/Ascorbic Acid (CRANBERRY + VIT C SOFTGEL) 1 Each Capsule, 1 EACH PO BID 09/18/12 Ascorbic Acid (VITAMIN C WITH SANTOS HIPS) 500 Mg Tablet, 500 MG PO QDAY 08/04/17 Atorvastatin Calcium (ATORVASTATIN CALCIUM) 40 Mg Tablet, 1 TAB PO QDAY, TAB 06/15/17 Diet: Regular Activity: With Walker Special Instructions: She will be followed by the Hospitalist Service while on [facility]. Venous Thromboembolism Antithrombotics Is Pt On Any Antithrombotics?: Yes Problem Qualifiers (1) DVT (deep venous thrombosis): DVT location: lower extremity Affected thrombotic vein of extremity: femoral Chronicity: acute Laterality: left Qualified Codes: I82.412 - Acute embolism and thrombosis of left femoral vein TESSA CRUZ MD Aug 07, 2017 11:27
[2017-08-07] MEDS ORDERED: ATOR40TA24 PO (12:33)
== END 2017-08-07 11:00 | DRG 301 ==
LOC: ER 09:22 → MED 14:21
PROVIDERS: ADMIT Internal Medicine; ATTEND Internal Medicine
DX: I82.412 Acute embolism and thrombosis of left femoral vein (principal); E78.5 Hyperlipidemia, unspecified; F32.9 Major depressive disorder, single episode, unspecified; F03.90 Unspecified dementia, unspecified severity, without behavioral disturbance, psychotic disturbance, mood disturbance, and anxiety; K21.0 Gastro-esophageal reflux disease with esophagitis; H35.30 Unspecified macular degeneration; E04.1 Nontoxic single thyroid nodule; K44.9 Diaphragmatic hernia without obstruction or gangrene; Z88.1 Allergy status to other antibiotic agents; Z86.718 Personal history of other venous thrombosis and embolism; Z99.81 Dependence on supplemental oxygen; Z87.440 Personal history of urinary (tract) infections; Z87.01 Personal history of pneumonia (recurrent)
CPT/HCPCS: 36415; 71275; 82040; 82247; 82310; 82374; 82435; 82565; 82947; 84075; 84132; 84155; 84295; 84450; 84460; 84520; 85025; 97162; 99285; J7030; Q9967

== ENCOUNTER 2017-08-07 11:00 | Inpatient (IN) | payer MEDICARE, BC ==
[~2017-08-07] VITALS: Ht 170.2 cm; Wt 95.5 kg
[~2017-08-07 11:00] MED LIST changes: +ASCO-183 PO; +ASCO-246 PO; +PRAZ2CAP26 PO
[2017-08-07] MEDS ORDERED: RIV10 PO (11:23)
--- NOTE | 2017-08-07 11:29 | ECF H&P BLANK ---
F H&P UPDATE History of Present Illness Chief Complaint Left leg pain and swelling. History of Present Illness The patient is an 82 year old female who presented to ER earlier today with her caregiver with complaints of L leg pain and swelling. The patient is unable to give any acute history due to short term memory issues. Per the EMR she has history of DVT of the left femoral vein and has been on warfarin in the past for this. She currently denies chest pain or shortness of breath. Per the ER notes, she was sitting on a tall stool for a prolonged period of time prior to developing symptoms. She is not currently on anticoagulants. In the ER, a venous doppler showed extensive clot in the left leg (see venogram report below). CTA of the chest did not show pulmonary embolism. The patient was unable to ambulate due to severe pain and swelling. She was recommended for admission. 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 (3) Thyroid cyst Status: Chronic (4) Hyperlipidemia Status: Chronic (5) Depression Status: Chronic (6) History of UTI Status: Resolved (7) History of pneumonia Status: Resolved (8) Hiatal hernia Status: Chronic Home Meds Active Scripts Paroxetine Hcl (PAROXETINE HCL) 20 Mg Tablet, 20 MG PO HS, #30 TAB Prov:ALO CRUZ MD 12/31/15 Reported Medications Ferrous Sulfate (FERROUS SULFATE) 325 Mg Tablet, 325 MG PO BID 06/15/17 Atorvastatin Calcium (ATORVASTATIN CALCIUM) 40 Mg Tablet, 1 TAB PO QDAY, TAB 06/15/17 Cranberry Conc/Ascorbic Acid (CRANBERRY + VIT C SOFTGEL) 1 Each Capsule, 1 EACH PO BID 09/18/12 Vit C/Anjelica Ac/Lut/Copper/Znox (PRESERVISION SOFTGEL) 1 Each Capsule, 1 EACH PO BID 09/18/12 Allergies: Coded Allergies: cefaclor (Verified Allergy, Intermediate, HIVES, 08/04/17) erythromycin base (Verified Allergy, Intermediate, HIVES, 08/04/17) Patient History: FH: [place] (myocardial infarction) FH: bilateral hip replacements BROTHER OR SISTER FH: diverticulitis MOTHER, FH: total knee replacement BROTHER OR SISTER No pertinent family history BROTHER OR SISTER CHILD CHILD CHILD Other Social/Family Hx The patient is and lives at home alone with caretakers and help from her family. Hx Smoking: No Hx Alcohol Use: Yes (COUPLE A MONTH) Hx Substance Use Disorder: No History of IV Drug Use: No Review of Systems All Systems Reviewed/Normal: Yes, Except as Noted Neurological: Confusion, Other (Dementia.) Cardiovascular: No Chest Pain Respiratory: No Shortness of Breath, No Cough Musculoskeletal: Pain (L leg.) Psychiatric: Depression Exam Vital Signs Vital Signs Date Time Temp Pulse Resp B/P (MAP) Pulse Ox O2 Delivery O2 Flow Rate FiO2 08/04/17 16:05 90 Room Air 08/04/17 15:03 98.6 95 16 163/93 (116) General Appearance: Alert, Awake, No Acute Distress, Afebrile Neuro: No Gross deficits Eyes: PERRLA Cardiovascular: Regular Rate and Rhythm Respiratory: Clear to Auscultation GI: Abd Soft and Non-Tender Extremities: Warm, Perfused, Edema (L leg with tenderness to palpation of calf. Swelling extends into her thigh.) Integumentary: Generalized Fragile Skin Psych: Appropriate Mood & Affect Medical Decision Making Data Points Result Diagram: 08/04/17 1030 08/04/17 1030 Item Value Date Time Urine Color Yellow 12/31/15 1505 Urine Clarity Clear 12/31/15 1505 Urine pH 6.0 pH 12/31/15 1505 Urine Specific [place] 1.013 12/31/15 1505 Urine Protein Negative mg/dL 12/31/15 1505 Urine Glucose (UA) Negative mg/dL 12/31/15 1505 Urine Ketones 20 mg/dL H 12/31/15 1505 Urine Blood Negative 12/31/15 1505 Urine Nitrite Negative 12/31/15 1505 Urine Bilirubin Negative 12/31/15 1505 Urine Urobilinogen 2.0 mg/dL 12/31/15 1505 Urine Leukocyte Esterase Trace H 12/31/15 1505 Urine RBC 2 /HPF 12/31/15 1505 Urine WBC 9 /HPF 12/31/15 1505 Urine Squamous Epithelial Cells Many /LPF H 12/31/15 1505 Urine Transitional Epithelial Cells Moderate /LPF H 12/31/15 1505 Urine Bacteria Negative /HPF 12/31/15 1505 Urine Mucus Few /HPF 12/31/15 1505 Calcium Level 9.9 mg/dl 08/04/17 1030 Total Bilirubin 1.3 mg/dl 08/04/17 1030 Aspartate Amino Transf (AST/SGOT) 28 U/L 08/04/17 1030 Alanine Aminotransferase (ALT/SGPT) 42 U/L 08/04/17 1030 Alkaline Phosphatase 140 U/L H 08/04/17 1030 Total Protein 6.9 gm/dl 08/04/17 1030 Albumin 3.6 g/dl 08/04/17 1030 EKG / Imaging Imaging FACILITY: [facility] PATIENT NAME: Marie Dupont : 1935 MR: [id number] V: [id number] EXAM DATE: [id number] ORDERING PHYSICIAN: WEI MARK TECHNOLOGIST: Location: [facility] Patient: Marie Dupont : 1935 Visit/Account:[id number] Date of Sevice: 08/04/2017 Exam type: VENOUS DOPP LOW LEFT EXTREMITY History: swollen left leg Comparison: April 09, 2016. Findings: Left common femoral vein, greater saphenous vein, superficial femoral vein, popliteal vein, peroneal vein posterior tibial vein are all noncompressible consistent with DVT. The left anterior tibial vein was partially compressible. There is extensive edema in the left calf IMPRESSION: 1. Extensive DVT throughout the left lower extremity from the left common femoral vein into the calf veins as detailed above Results were called to WEI MARK at 08/04/2017 11:31 AM. Report Dictated By: Martine Redmond MD at 08/04/2017 11:24 AM Report E-Signed By: Martine Redmond MD at 08/04/2017 11:31 AM WSN:[id number] FACILITY: [facility] PATIENT NAME: Marie Dupont : 1935 MR: [id number] V: [id number] EXAM DATE: [id number] ORDERING PHYSICIAN: WEI MARK TECHNOLOGIST: Location: [facility] Patient: Marie Dupont : 1935 Visit/Account:[id number] Date of Sevice: 08/04/2017 CT angiogram chest with contrast Indication: Diagnosed DVT with shortness of breath and tachycardia. Comparison: 05/27/2016. Technique: Axial CT images are obtained through the chest after administration of 75 mL Isovue 370 IV contrast. Reformatted coronal and sagittal images were reviewed as well as coronal MIP images. One of the following dose optimization techniques was utilized in the performance of this exam: automated exposure control; adjustment of the mA and/ or kV according to the patient's size; or use of an iterative reconstruction technique. Specific details can be referenced in the facility's radiology CT exam operational policy. FINDINGS: No evidence of filling defect within the pulmonary vasculature to suggest pulmonary embolus. The heart is mildly diffusely enlarged without pericardial effusion. The left ventricle measures 4. Centimeters and the right ventricle measures 4.2 cm. The aorta shows no aneurysm or dissection. The mediastinum and hilar regions show no enlarged lymph nodes or abnormal density. The left lower lobe does show early consolidation. This appears stable previous exam. Mild dependent atelectasis seen bilaterally. No other areas of consolidation. No pneumothorax, pleural effusion or discrete nodule. The airways are clear. Bony structures show no acute fractures or discrete lesions. Chest wall shows no enlarged axillary lymph nodes or masses. The right thyroid again shows a 2.8 cm hypodense nodule. Moderate hiatal hernia is again present. Question of a small gallstone which is faintly visualized. The upper abdomen is otherwise unremarkable. IMPRESSION: 1. No evidence of pulmonary embolus. 2. Early consolidation in the left lower lobe. This is unchanged from the previous exam and most likely due to atelectasis and less likely pneumonia. 3. Stable mild cardiomegaly. 4. Probable cholelithiasis. 5. Stable moderate hiatal hernia. 6. Continued 2.8 cm right thyroid hypodense nodule. ACR recommendations for incidental thyroid nodule and CT or MRI without suspicious features, no nodule invasion or lymphadenopathy: -Age less than 35 recommend thyroid ultrasound for nodule greater than or equal to 1 cm. No follow-up for nodules less than 1 cm. -Age greater than 35 recommend thyroid ultrasound for nodules greater than or equal to 1.5 cm. No follow-up for nodules less than 1.5 cm. Report Dictated By: Hansel Wells at 08/04/2017 12:33 PM Report E-Signed By: Hansel Wells at 08/04/2017 12:48 PM WSN:[id number] Pre-Admit Course Medical Record Review: Yes Assessment and Plan Problems: (1) DVT (deep venous thrombosis) Status: Acute Assessment & Plan: Venous doppler shows extensive DVT throughout the left lower extremity from the left common femoral vein into the calf veins. The patient was started on Xarelto 15mg in the ER. Will continue. She is having significant pain with ambulation. Will elevate leg. (2) Hyperlipidemia Status: Chronic Assessment & Plan: She is on atorvastatin at home. Will continue. (3) Depression Status: Chronic Assessment & Plan: Continue paroxetine. (4) Dementia Status: Chronic Assessment & Plan: The patient has poor short term memory. She is not currently on any treatment. She does have a master brewer at home for several hours during the day. Time Spent on Plan of Care: < 30 min Copies to: ANI KOENIG MD Venous Thromboembolism VTE Risk Physician Assess for VTE Risk: Yes Patient's VTE Risk: High VTE Diagnostic Test 2 Days Prior to Admit: Yes Antithrombotics Is Pt On Any Antithrombotics?: Yes Exam Sepsis Risk: No Definite Risk Problem Qualifiers (1) DVT (deep venous thrombosis): DVT location: lower extremity Affected thrombotic vein of extremity: femoral Chronicity: acute Laterality: left Qualified Codes: I82.412 - Acute embolism and thrombosis of left femoral vein ALO CRUZ MD Aug 04, 2017 16:57 <Electronically signed by ALO CRUZ MD> D/ 56 56 56 [facility] CC: ANI KOENIG MD Patient will be admitted to [facility] for ongoing rehabilitative therapy. TESSA CRUZ MD Aug 07, 2017 11:29
[2017-08-07 11:30] VITALS: BP 117/56
--- NOTE | 2017-08-07 12:19 | Consultant Pharmacy Review ---
Machine Guide Base Winder Review Medication Review Do All Mecications have a Diag: No (Unable to find diagnosis for Prazosin) Beers Criteria Medication 2015 Alpha 1 Blockers: Prazosin Disease-Drug Interactions History of Falls/Fractures: SSRIs Other General Cautions Lexicomp Interaction Analysis A = No known interaction C = Monitor therapy X = Avoid combination B = No action needed D = Consider therapy modification Drugs in this analysis: Acetaminophen; Paxil; Prazosin; Xarelto * Drug-Drug Interactions C Paxil (Agents with Antiplatelet Properties) Xarelto (Rivaroxaban) Depends on International labeling Pneumococcal Vaccine HX Pneumo Vac ([id number]): No HX Pneumo Vac (Pneumovax): No (Never per [facility] at [facility]) Comments Regarding the Review Patient is a candidate for pneumoccocal vaccinations but declines vaccinations. Please monitor patient for falls due to Prazosin and Paroxetine use. CARLY MERCER Aug 07, 2017 12:19
[2017-08-07] MEDS ORDERED: ATOR40TA24 PO (12:33)
[2017-08-07 13:28] VITALS: Ht 170.2 cm; Wt 95.5 kg
--- NOTE | 2017-08-07 15:25 | OT ECF NOTE ---
Type of Note: Initial Note Primary Medical Diagnosis: Left LE DVT Occupational Therapy Evaluation Date: 08-07-17 SUBJECTIVE: Prior Hospitalization: Pt. was admitted to [facility] medical from 08-04-17 to 08-07. Prior Level of Function: Pt. was independent with assistance of caregiver. Prior Living Status: Multilevel house Community Services: Caregiver Home Accessibility: Stairs with rails Equipment Owned: Front wheeled walker Cane Medical Complications/Past Medical History: Please refer to chart for details. Psychosocial Support: Pt. has a caregiver during the week days. Pain Scale (0-10): None stated OBJECTIVE: Strength: MMT: Right Left Shoulder Flexion [*] [*] Elbow Flexion [*] [*] Wrist Extension [*] [*] Flight Follower [*] [*] (5= normal, 4= good, 3= fair, 2= poor, 1= trace) ROM: Both upper extremities WFL Functional Transfer: Assistive Device: Front wheeled walker Gait belt Transfer Ability: 1-person assist CGA ADL: Upper body dressing: Assistive device: Upper body dressing ability: Set-up Lower body dressing: Assistive device: Lower body dressing ability: Minimum assistance Toileting: Assistive device: N/T Toileting ability: Grooming/hygiene: Standing Assistive device: Grooming ability: Set-up Bathing: Assistive device: N/T Bathing ability: Standardized Assessment: Mary Index of Activities of Daily Living- Pt. scored a 14/20 on this Index upon initial evaluation. ASSESSMENT: Pt. is a 82 year old female who was admitted on 08/04/17 for a Left LE DVT. Pt. was brought into the ER by her caregiver, who is with her from 8-3pm Fri- Friday. Pt. states that this caregiver assists with cleaning, cooking and assisting patient with bathing/showering. Pt. has a history of short term memory issues and has been diagnosed with dementia, however, is on no current treatment for this issue. Pt. was admitted to [facility] for continued rehab to assist patient with increase independence in ADL activities as patient resides at home, alone in a multi-level home. Problem List/Current Limitations: Decreased activity nichelle Confusion Short Term Goals: 1. Pt. to perform dressing activities with Mod I. 2. Pt. to perform showering activities with Min A. 3. Pt. to perform g/h activities with [place]. 4. Pt. to increase Mary Index of ADL score by 2 points. 5. Pt. to perform light meal prep. with [place]. Alf Goals: To return home. Patient Goals: To return to prior level of functioning, to return to home. Rehabilitation Prognosis: Fair Barriers to Discharge: Cognition, pt.resides alone. PLAN: The patient will benefit from skilled occupational therapy services 5 times per week for 2 weeks including: Ther ex ADL training Safety training Ther act IADL training Transfer training Adaptive equip training Thank you for this referral. If you have any questions, concerns, or comments about this report or plan, please contact me at . Greta Hassan OTR/L Occupational Therapist RALF
[2017-08-07 16:30] VITALS: BP 136/83
[2017-08-07] MEDS: ACETAMINOPHEN 325 MG TAB PO PRN (20:53)
[2017-08-07] MEDS: PARoxetine HCL 20 MG TAB PO SCH (20:53)
[2017-08-07] MEDS: RIVAROXABAN 10 MG TAB PO SCH (20:53)
[2017-08-07] MEDS: PRAZOSIN HCL 1 MG CAP PO SCH (20:53)
[2017-08-08 08:00] VITALS: BP 116/67
[2017-08-08] MEDS: RIVAROXABAN 10 MG TAB PO SCH ×2 (08:58→20:29)
--- NOTE | 2017-08-08 09:00 | PT ECF NOTE ---
Type of Note: Initial Note Primary Medical Diagnosis: L LE DVT Physical Therapy Evaluation Date: 08/07/2017 SUBJECTIVE: Prior Hospitalization: Pt admitted to [facility] acute care 08/04/17-08/07/17 Prior Level of Function: Pt and Pt's son report Pt has caregivers present from Friday-Friday 8-2:30 who are present for assisting with house work and IADLs. Pt's caregivers do not assist Pt physically with mobility or ADLs. Pt and Pt's son report occasional use of a care for community mobility, otherwise, she does not use an assistive device for mobility within the home. Pt has a 4- level bi-level home which she does access all levels using handrail in stairs. Prior Living Status: Multilevel house, see above Community Services: Caregivers as stated above. Home Accessibility: Stairs with rails Equipment Owned: Front wheeled walker, Cane Medical Complications/Past Medical History: Decreased memory. See EMR for additional details. Psychosocial Support: Pt has caregivers as stated above and supportive children. Pain Scale (0-10): Pt unable to rate but does favor L LE due to increased pain. OBJECTIVE: Bed Mobility: Min A Assistive device: Bed rail, Head of bed elevated Transfers: CGA Assistive Device: Front wheeled walker Gait: CGA x total of 50' with 1 seated rest break and increased time. Assistive device: Front wheeled walker Timed Up and Go (>12 seconds indicated increased risk for falls): 55.8 seconds indicating increased risk for falls. ASSESSMENT: Pt presents with increased LE pain resulting in decreased independence with functional mobility and decreased safety with increased fall risk as indicated by TUG score. Pt also has decreased memory and is alone for a portion of the day, night, and weekends further increasing her risk for falls. Pt will benefit from skilled PT for functional mobility and safety training in order to return to prior level of function. Problem List/Current Limitations: Pain, Decreased activity tolerance, Decreased strength, Generalized weakness, Poor safety awareness, Memory deficits , Decreased problem solving, Confusion Short Term Goals: 1. Mod I bed mobility. 2. Mod I transfers. 3. Mod I gait x 150' with least restrictive device. 4. Ascend/descend 8 stairs with rail SBA. Penitentiary Goals: Return to prior living arrangements Patient Goals: Return home Rehabilitation Prognosis: Good Barriers for Discharge: Decreased memory. PLAN: The patient will benefit from skilled physical therapy services 5 times per week for 2 weeks including: Therapeutic Exercise, Therapeutic Activities, Transfer Training, Gait Training, Stair Training, Manual Therapy, ADL's, Safety Training, Neuromuscular Re-educ., Wound Care, Pt/Caregiver Training, Bed Mobility Thank you for this referral. If you have any questions, concerns, or comments about this report or plan, please contact me at . Trista Perez, PT, DPT, GCS MTDD
[2017-08-08] MEDS: ACETAMINOPHEN 325 MG TAB PO PRN (14:37)
--- NOTE | 2017-08-08 15:06 | Medical Nutrition Therapy ---
Nutrition Anthropometrics Height (Inches): 67.00 Height (Calculated Centimeters: 170.167583 Weight (Pounds): 199 Weight (Calculated Kilograms): 90.407 BMI Calculated: 31.16 Jonn Nutrition Score: Probably Inadequate Jonn Nutrition Risk Score: 16 Dietary Referral Nutrition Risk Factors: Nutrition Risk Comment: Nutritional Diagnosis Nutritional Risk Acuity 3: Weight Loss Nutritional Risk Acuity 4: Good Appetite Past Medical History: Dementia, DVT, thyroid cyst, hyperlipidemia, depression, hx of UTI, hx of pneumonia, hiatal hernia Nutritional Acuity: 3-Mild Nutrition Diagnosis: Increased Nutrient Needs Nutrition Etiology: Increased Nutrient Needs Nutrition Problem/Etiology/Sym: increased need for healing and strength during admit. Energy Requirement: 2093 (kcal/day (23 kcal/kg)) Protein Requirement: 81 (g/day (0.9 g/kg)) Fluid Requirement: 2275 (mL/day (25 mL/kg)) Diet Type: Diet as Tolerated YARELIS/REG Nutrition Intervention: Cont diet as ordered, Encourage intake Nutrition Monitoring & Eval Nutrition Goals: Eat 75-100% Meal Nutrition Follow-Up: Fair Intake RD Patient Assessment Time: [address] Assessment Type: RD Assessment Patient Nutrition Acuity: 3-Mild Follow Up Date: Aug 12, 2017 Nutritional Comment: 08/07 Pt admitted with DVT. Pt has no nutritionally relevant labs or medications at this time. Pt diet as tolerated and has consumed 58% x 3 meals since admit. Continue to monitor pt intakes and progress. SAMIR BAUER Aug 08, 2017 14:07
[2017-08-08 15:47] VITALS: BP 115/82
[2017-08-08] MEDS: PRAZOSIN HCL 1 MG CAP PO SCH (20:29)
[2017-08-08] MEDS: PARoxetine HCL 20 MG TAB PO SCH (20:29)
[2017-08-09 07:50] VITALS: BP 135/84
[2017-08-09] MEDS: RIVAROXABAN 10 MG TAB PO SCH ×2 (08:33→21:09)
[2017-08-09] MEDS: ACETAMINOPHEN 325 MG TAB PO PRN ×2 (13:57→21:09)
[2017-08-09 16:05] VITALS: BP 127/74
[2017-08-09] MEDS: PARoxetine HCL 20 MG TAB PO SCH (21:09)
[2017-08-09] MEDS: PRAZOSIN HCL 1 MG CAP PO SCH (21:09)
[2017-08-10 07:30] VITALS: BP 138/75
[2017-08-10] MEDS: RIVAROXABAN 10 MG TAB PO SCH ×2 (09:26→20:22)
[2017-08-10] MEDS: ACETAMINOPHEN 325 MG TAB PO PRN (11:11)
[2017-08-10 17:20] VITALS: BP 136/78
[2017-08-10] MEDS: PARoxetine HCL 20 MG TAB PO SCH (20:22)
[2017-08-10] MEDS: PRAZOSIN HCL 1 MG CAP PO SCH (20:22)
[2017-08-11 07:45] VITALS: BP 138/86
[2017-08-11] MEDS: ACETAMINOPHEN 325 MG TAB PO PRN ×2 (08:30→21:31)
[2017-08-11] MEDS: RIVAROXABAN 10 MG TAB PO SCH ×2 (08:30→21:31)
--- NOTE | 2017-08-11 15:42 | Medical Nutrition Therapy ---
Nutrition Anthropometrics Height (Inches): 67.00 Height (Calculated Centimeters: 170.382980 Weight (Pounds): 206 Weight (Calculated Kilograms): 93.497 BMI Calculated: 31.16 Jonn Nutrition Score: Adequate Jonn Nutrition Risk Score: 17 Dietary Referral Nutrition Risk Factors: Nutrition Risk Comment: Nutritional Diagnosis Nutritional Risk Acuity 4: Good Appetite Past Medical History: Dementia, DVT, thyroid cyst, hyperlipidemia, depression, hx of UTI, hx of pneumonia, hiatal hernia Nutritional Acuity: 3-Mild Nutrition Diagnosis: Increased Nutrient Needs Nutrition Etiology: Increased Nutrient Needs Nutrition Problem/Etiology/Sym: increased need for healing and strength during admit. Energy Requirement: 2093 (kcal/day (23 kcal/kg)) Protein Requirement: 81 (g/day (0.9 g/kg)) Fluid Requirement: 2275 (mL/day (25 mL/kg)) Diet Type: Diet as Tolerated YARELIS/REG Nutrition Intervention: Cont diet as ordered, Encourage intake Nutrition Monitoring & Eval Nutrition Goals: Eat 75-100% Meal Nutrition Follow-Up: Good Intake RD Patient Assessment Time: [address] Assessment Type: RD Re-Assessment Patient Nutrition Acuity: 3-Mild Follow Up Date: August 19, 2017 Nutritional Comment: 08/07 Pt admitted with DVT. Pt has no nutritionally relevant labs or medications at this time. Pt diet as tolerated and has consumed 58% x 3 meals since admit. Continue to monitor pt intakes and progress. 08/11 Pt cont on regular diet. Has been eating 100% of meal past 3 days. wt on 08/07= 199#, wt 08/11 =206# ( up 3.5%) . Pt has 3+ edema to left leg. Anticipate wt loss when edema resolved. Will cont to monitor and encourage intake. IRIS GOODMAN Aug 11, 2017 15:42
[2017-08-11 17:03] VITALS: BP 134/82
[2017-08-11] MEDS: PRAZOSIN HCL 1 MG CAP PO SCH (21:31)
[2017-08-11] MEDS: PARoxetine HCL 20 MG TAB PO SCH (21:31)
[2017-08-12] MEDS: ACETAMINOPHEN 325 MG TAB PO PRN (06:57)
[2017-08-12 08:00] VITALS: BP 122/78
[2017-08-12] MEDS: RIVAROXABAN 10 MG TAB PO SCH ×2 (09:01→20:58)
[2017-08-12 16:55] VITALS: BP 139/81
[2017-08-12] MEDS: PRAZOSIN HCL 1 MG CAP PO SCH (20:58)
[2017-08-12] MEDS: PARoxetine HCL 20 MG TAB PO SCH (20:58)
[2017-08-13 08:00] VITALS: BP 130/80
[2017-08-13] MEDS: RIVAROXABAN 10 MG TAB PO SCH ×2 (08:55→20:56)
--- NOTE | 2017-08-13 11:13 | Hospitalist Progress Note ---
Subjective Progress Notes Subjective No new complaints from patient. Her sister is concerned she has wax in her ears as her hearing aids are not working for her. Physical Exam Vital Signs Date Time Temp Pulse Resp B/P (MAP) Pulse Ox O2 Delivery O2 Flow Rate FiO2 08/13/17 09:17 94 Room Air 08/13/17 08:54 98 08/13/17 08:00 97.8 14 130/80 (97) 08/13/17 00:01 0.5 Intake and Output 08/14/17 07:00 Intake Total 240 ml Balance 240 ml Intake Oral 240 ml # Voids 1 General Appearance: Alert, Awake, No Acute Distress Neuro: Other (Very poor short term memory.) Eyes: PERRLA ENT: Other (R ear canal occluded with cerumen. L ear canal with cerumen in canal but not occluding canal.) Cardiovascular: Regular Rate and Rhythm Respiratory: Clear to Auscultation GI: Soft and Non-Tender Extremities: Warm, Perfused, Other (L leg swollen to above the knee. Tender to palpation.) Integumentary: Generalized Fragile Skin Psych: Appropriate Mood & Affect Assessment and Plan Problems: (1) DVT (deep venous thrombosis) Status: Acute Assessment & Plan: Venous Doppler showed an extensive DVT throughout the left lower extremity from the left common femoral vein into the calf veins. She had much swelling and pitting edema in the entire left leg. The leg is well perfused on exam and she is reporting much improvement in pain. The patient was started on Xarelto 15mg PO BID. She is with Physical and Occupational therapy and has been transferred to [facility] for ongoing therapy. (2) Hyperlipidemia Status: Chronic Assessment & Plan: She is on atorvastatin at home. (3) Depression Status: Chronic Assessment & Plan: Continue paroxetine. (4) Dementia Status: Chronic Assessment & Plan: The patient has poor short term memory. She is not currently on any treatment. She does have a superintendent distribution at home for several hours during the day. (5) Cerumen impaction Assessment & Plan: R ear with cerumen up against drum, completely occluding canal. L ear with some wax in canal but not completely occluded. Will order Debrox. Time Spent on Plan of Care: < 30 min Problem Qualifiers (1) Cerumen impaction: Laterality: bilateral Qualified Codes: H61.23 - Impacted ceramina bustos JULIE A MD Aug 13, 2017 11:13
[2017-08-13] MEDS ORDERED: PNEUMOCOC VAC POLY 25MCG/0.5ML IM ONLY ONE (13:00)
[2017-08-13] MEDS: CARBAMIDE PEROX 6.5% OT SOLN EACH EAR SCH ×2 (14:04→20:56)
[2017-08-13 15:45] VITALS: BP 133/65
[2017-08-13] MEDS: ACETAMINOPHEN 325 MG TAB PO PRN (20:56)
[2017-08-13] MEDS: PARoxetine HCL 20 MG TAB PO SCH (20:56)
[2017-08-13] MEDS: PRAZOSIN HCL 1 MG CAP PO SCH (20:56)
[2017-08-14 08:00] VITALS: BP 133/74
[2017-08-14] MEDS: RIVAROXABAN 10 MG TAB PO SCH ×2 (09:21→20:42)
[2017-08-14] MEDS: CARBAMIDE PEROX 6.5% OT SOLN EACH EAR SCH ×2 (09:21→21:00)
[2017-08-14 15:35] VITALS: BP 131/74
[2017-08-14] MEDS: PARoxetine HCL 20 MG TAB PO SCH (20:42)
[2017-08-14] MEDS: PRAZOSIN HCL 1 MG CAP PO SCH (20:42)
[2017-08-14] MEDS: ACETAMINOPHEN 325 MG TAB PO PRN (20:42)
[2017-08-15 08:00] VITALS: BP 136/67
[2017-08-15] MEDS: RIVAROXABAN 10 MG TAB PO SCH ×2 (09:31→21:14)
[2017-08-15] MEDS: CARBAMIDE PEROX 6.5% OT SOLN EACH EAR SCH ×2 (09:32→21:15)
[2017-08-15 15:15] VITALS: BP 135/76
[2017-08-15] MEDS: PARoxetine HCL 20 MG TAB PO SCH (21:14)
[2017-08-15] MEDS: PRAZOSIN HCL 1 MG CAP PO SCH (21:14)
[2017-08-16 07:25] VITALS: BP 124/71
[2017-08-16] MEDS: RIVAROXABAN 10 MG TAB PO SCH ×2 (08:47→21:30)
[2017-08-16 17:15] VITALS: BP 115/75
[2017-08-16] MEDS: CARBAMIDE PEROX 6.5% OT SOLN EACH EAR SCH ×3 (21:00→21:30)
[2017-08-16] MEDS: PARoxetine HCL 20 MG TAB PO SCH (21:30)
[2017-08-16] MEDS: PRAZOSIN HCL 1 MG CAP PO SCH (21:31)
[2017-08-17 08:00] VITALS: BP 135/75
[2017-08-17] MEDS: RIVAROXABAN 10 MG TAB PO SCH ×2 (08:59→20:35)
[2017-08-17 16:00] VITALS: BP 123/75
[2017-08-17] MEDS: CARBAMIDE PEROX 6.5% OT SOLN EACH EAR SCH (20:35)
[2017-08-17] MEDS: PRAZOSIN HCL 1 MG CAP PO SCH (20:35)
[2017-08-17] MEDS: PARoxetine HCL 20 MG TAB PO SCH (20:35)
[2017-08-18 07:25] VITALS: BP 132/67
[2017-08-18] MEDS: RIVAROXABAN 10 MG TAB PO SCH ×2 (08:46→20:29)
[2017-08-18] MEDS: CARBAMIDE PEROX 6.5% OT SOLN EACH EAR SCH ×2 (08:46→20:29)
[2017-08-18 17:00] VITALS: BP 121/78
[2017-08-18] MEDS: PARoxetine HCL 20 MG TAB PO SCH (20:29)
[2017-08-18] MEDS: ACETAMINOPHEN 325 MG TAB PO PRN (20:29)
[2017-08-18] MEDS: PRAZOSIN HCL 1 MG CAP PO SCH (20:29)
[2017-08-19 07:45] VITALS: BP 118/60
--- NOTE | 2017-08-19 08:28 | Medical Nutrition Therapy ---
Nutrition Anthropometrics Height (Inches): 67.00 Height (Calculated Centimeters: 170.141277 Weight (Pounds): 215 Weight (Calculated Kilograms): 97.522 BMI Calculated: 31.16 Jonn Nutrition Score: Probably Inadequate Jonn Nutrition Risk Score: 16 Dietary Referral Nutrition Risk Factors: Nutrition Risk Comment: Physical Findings Physical Appearance: Obese BMI 30-39 Skin Appearance Skin Appearance: Edema Edema Location Modifier: Left Edema Location: Lower Extremity Type of Edema: Degree of Edema: 2+ Gastrointestinal Symptoms GI Symtoms: Tube Present: Bowel Sounds: Recent Bowel Pattern: Stool Characteristics: Nutritional Diagnosis Nutritional Risk Acuity 4: Good Appetite Past Medical History: Dementia, DVT, thyroid cyst, hyperlipidemia, depression, hx of UTI, hx of pneumonia, hiatal hernia Nutritional Acuity: 3-Mild Nutrition Diagnosis: Increased Nutrient Needs Nutrition Etiology: Increased Nutrient Needs Nutrition Problem/Etiology/Sym: increased need for healing and strength during admit. Energy Requirement: 2093 (kcal/day (23 kcal/kg)) Protein Requirement: 81 (g/day (0.9 g/kg)) Fluid Requirement: 2275 (mL/day (25 mL/kg)) Diet Type: Diet as Tolerated YARELIS/REG Nutrition Intervention: Cont diet as ordered, Encourage intake Nutrition Monitoring & Eval Nutrition Goals: Eat 75-100% Meal Nutrition Follow-Up: Good Intake RD Patient Assessment Time: [address] Assessment Type: RD Re-Assessment Patient Nutrition Acuity: 3-Mild Follow Up Date: August 26, 2017 Nutritional Comment: 08/07 Pt admitted with DVT. Pt has no nutritionally relevant labs or medications at this time. Pt diet as tolerated and has consumed 58% x 3 meals since admit. Continue to monitor pt intakes and progress. 08/11 Pt cont on regular diet. Has been eating 100% of meal past 3 days. wt on 08/07= 199#, wt 08/11 =206# ( up 3.5%) . Pt has 3+ edema to left leg. Anticipate wt loss when edema resolved. Will cont to monitor and encourage intake. BK 08/19 Pt on regular diet and eating 100% of meals. Wt cont to increase. Currently 215#, and increase of 16# (8%) since 08/07. Pt cont 2+ edema. Pt is not on a duiretic at this time. Anticipate wt loss when edema resolved. Cont to monitor and encourage intake. IRIS SLATER August 19, 2017 08:28
[2017-08-19] MEDS: RIVAROXABAN 10 MG TAB PO SCH ×2 (09:02→20:29)
[2017-08-19] MEDS: CARBAMIDE PEROX 6.5% OT SOLN EACH EAR SCH ×2 (09:02→20:29)
[2017-08-19] MEDS: ACETAMINOPHEN 325 MG TAB PO PRN ×2 (09:10→20:28)
[2017-08-19 16:50] VITALS: BP 136/75
[2017-08-19] MEDS: PARoxetine HCL 20 MG TAB PO SCH (20:29)
[2017-08-19] MEDS: PRAZOSIN HCL 1 MG CAP PO SCH (20:29)
[2017-08-19] MEDS ORDERED: CELECOXIB 200 MG CAP PO ONE (21:40)
--- NOTE | 2017-08-19 21:48 | Miscellaneous Provider Note ---
Miscellaneous Provider Note Note The patient received the pneumovax in the right deltoid yesterday. It was sore after the injection and in the evening. This evening staff noted that there was a lot of swelling and redness in the right upper arm. The patient denies chills or itching. She does have pain in that arm. Temp 99, pulse 96-101, bp 136/75, breathing comfortably Erythema and warmth in upper right arm. Much swelling in the arm compared to the left. The erythema border has been marked. Delayed local reaction to pneumovax with significant swelling and erythema. Staff will follow for worsening erythema. Will try a dose of Celebrex tonight for the inflammation and pain. Will try cold compresses to the arm. SUKI BAH MD August 19, 2017 21:48
[2017-08-20 06:05] LABS: PLATELET COUNT, AUTOMATED 231 K/uL (150-450)
[2017-08-20 08:00] VITALS: BP 118/75
[2017-08-20] MEDS: RIVAROXABAN 10 MG TAB PO SCH ×2 (08:58→20:42)
--- NOTE | 2017-08-20 12:56 | OT ECF NOTE ---
Type of Note: Discharge Note Primary Medical Diagnosis: Left LE DVT Occupational Therapy Evaluation Date: 08-07-17 SUBJECTIVE: Prior Hospitalization: Pt. was admitted to [facility] medical from 08-04-17 to 08-07. Prior Level of Function: Pt. was independent with assistance of caregiver for all IADLs and occasional ADLs. Prior Living Status: Multilevel house Community Services: Caregiver Home Accessibility: Stairs with rails Equipment Owned: Front wheeled walker, Cane Medical Complications/Past Medical History: Please refer to chart for details. Psychosocial Support: Pt. has a caregiver during the week days. Pain Scale (0-10): None stated OBJECTIVE: Strength: MMT: Right Left Shoulder Flexion [*] [*] Elbow Flexion [*] [*] Wrist Extension [*] [*] Review Rn [*] [*] (5= normal, 4= good, 3= fair, 2= poor, 1= trace) ROM: Both upper extremities, WFL Functional Transfer: Assistive Device: Front wheeled walker Transfer Ability: Modified Independent ADL: Upper body dressing: Assistive device: None Upper body dressing ability: Independent Lower body dressing: Assistive device: None Lower body dressing ability: Independent Toileting: Assistive device: None Toileting ability: Independent Grooming/hygiene: Standing Assistive device: None Grooming ability: Independent Bathing: Assistive device: Pt refusing showers with OT Bathing ability: Caregiver will assist with bathing at home. Standardized Assessment: Mary Index of Activities of Daily Living- Pt. scored a 14/20 on this Index upon initial evaluation. 19/20 at discharge (08/20/17). ASSESSMENT: Pt. is a 82 year old female who was admitted on 08/04/17 for a Left LE DVT. Pt. was brought into the ER by her caregiver, who is with her from 8-3pm Fri- Friday. Pt. states that this caregiver assists with cleaning, cooking and assisting patient with bathing/showering. Pt. has a history of short term memory issues and has been diagnosed with dementia, however, is on no current treatment for this issue. Pt. has met all skilled OT goals and plans to discharge home . Pt reports no concerns for OT in regards to discharge home reporting she is highly "capable" Problem List/Current Limitations: Decreased activity tolerance Confusion Short Term Goals: 1. Pt. to perform dressing activities with Mod I. GOAL MET 2. Pt. to perform showering activities with Min A. Not addressed with OT-pt frequently refusing showers 3. Pt. to perform g/h activities with [place]. GOAL MET 4. Pt. to increase Mary Index of ADL score by 2 points. GOAL MET 5. Pt. to perform light meal prep. with [place]. GOAL MET Systems Technician Goals: To return home. Patient Goals: To return to prior level of functioning, to return to home. Rehabilitation Prognosis: Fair Barriers to Discharge: Cognition, pt.resides alone. PLAN: The patient will discharge home with continued caregiver assist for IADLs/ ADLs and HH services. Pt, son, and caregiver agreeable with this plan. Thank you for this referral. If you have any questions, concerns, or comments about this report or plan, please contact me at . Alexandra Horta MS, OTR/L Occupational Therapist RALF
[2017-08-20 16:00] VITALS: BP 112/70
--- NOTE | 2017-08-20 16:56 | Hospitalist Depart ---
Discharge Summary Reason for Hosp/Final Diag: (1) DVT (deep venous thrombosis) Status: Acute Hospital Course & Plan: Venous Doppler showed an extensive DVT throughout the left lower extremity from the left common femoral vein into the calf veins. She had much swelling and pitting edema in the entire left leg. The leg was well perfused on exam. The patient was started on Xarelto 15mg PO BID. She worked with Physical and Occupational therapy on ECF. (2) Hyperlipidemia Status: Chronic Hospital Course & Plan: She is on atorvastatin at home. (3) Depression Status: Chronic Hospital Course & Plan: She was continued on paroxetine. (4) Dementia Status: Chronic Hospital Course & Plan: The patient had poor short term memory. She was not on any treatment. She does have a nurseryperson at home for several hours during the day. (5) Cerumen impaction Hospital Course & Plan: The right ear had cerumen up against the drum, completely occluding canal. The left ear had some wax in canal but was not completely occluded. Debrox was ordered. (6) Reaction at application site Status: Acute Hospital Course & Plan: The patient had a reaction to a Pneumovax injection with redness and swelling of her upper right arm. She had no fever and her WBC was normal. Celebrex was ordered prn. Departure Weight (Pounds): 212 Weight (Ounces): 2.0 Result Diagram: 08/20/1745 08/20/1745 Condition: Improved Discharge: Home, Home Health PT/OT Follow Up For: PT For Strengthening Home Health RN Follow Up For: Medication Management, Nursing Assessment Home Health [facility] Follow Up For: ADL Assistance Discharge Code Status: Full Code Time Spent: < 30 min Discharge Instructions Home Meds Active Scripts Rivaroxaban 20 Mg (XARELTO 20 MG) 20 Mg Tablet, 20 MG PO DAILY, #30 TAB 2 Refills DO NOT START UNTIL 08/26/17. Take with the evening meal. Prov:ARON MAC [facility] 08/21/17 Rivaroxaban 15 Mg (XARELTO 15 MG) 15 Mg Tablet, 15 MG PO BID, #9 TAB 0 Refills Prov:ARON MAC PART TIME 08/21/17 Rivaroxaban (XARELTO 10 MG TAB (OR EQUIV)) 10 Mg Tablet, 15 MG PO BID for 30 Days, TAB Prov:TESSA CRUZ MD 08/07/17 Paroxetine Hcl (PAROXETINE HCL) 20 Mg Tablet, 20 MG PO HS, #30 TAB Prov:ALO CRUZ MD 12/31/15 Reported Medications Atorvastatin Calcium (LIPITOR) 40 Mg Tablet, 1 TAB PO QDAY, TAB 08/07/17 Prazosin Hcl (PRAZOSIN HCL) 2 Mg Capsule, 2 MG PO HS, CAPSULE 08/04/17 Vit C/Anjelica Ac/Lut/Copper/Znox (PRESERVISION SOFTGEL) 1 Each Capsule, 1 EACH PO BID 09/18/12 Follow up Referrals: Family Practice - In Two Weeks @ [facility] with Ani Del Toro Md Diet: Regular Activity: As Tolerated Special Instructions: Finish RX for Xarelto 15mg bid and then start Xarelto 20mg daily with the evening meal. Copies to: ANI DEL TORO MD Venous Thromboembolism Antithrombotics Is Pt On Any Antithrombotics?: Yes Ehgl-[id number] Certification Face to Face Home Health Certification Institutional Provider conducted the [id number] encounter. Electronic Undersigning Physician Certifies Home Health. I certify that the patient has been under my care and that I had a [id number] encounter that meets the physician [id number] encounter requirements with this patient. This patient is home-bound due to safety issues and continues to require assistance with ADL's. I certify that based on my findings, that Nursing, Aides and the following Home Health services are medically necessary: PT/OT Medical Necessity: Nursing, Rehab Date Face to Face Conducted: August 20, 2017 Problem Qualifiers (1) DVT (deep venous thrombosis): Laterality: left (2) Hyperlipidemia: Hyperlipidemia type: mixed hyperlipidemia Qualified Codes: E78.2 - Mixed hyperlipidemia (3) Cerumen impaction: Laterality: bilateral Qualified Codes: H61.23 - Impacted cerumen, bilateral ALO CRUZ MD August 20, 2017 16:56
--- NOTE | 2017-08-20 17:01 | Hospitalist Progress Note ---
Subjective Progress Notes Subjective Feeling better overall. Physical Exam Vital Signs Date Time Temp Pulse Resp B/P (MAP) Pulse Ox O2 Delivery O2 Flow Rate FiO2 08/20/17 08:00 97.7 90 18 118/75 (89) 91 Room Air 08/19/17 17:00 0.5 Intake and Output 08/21/17 07:00 Intake Total 700 ml Balance 700 ml Intake Oral 700 ml # Voids 2 General Appearance: Alert, Awake, No Acute Distress Neuro: Other (Poor short term memory.) Cardiovascular: Regular Rate and Rhythm Respiratory: Clear to Auscultation GI: Soft and Non-Tender Extremities: Other (R arm with some redness and swelling surround recent Pneumovax site. Very slightly warm to touch.) Psych: Appropriate Mood & Affect Result Diagram: 08/20/1754408/20/17544 Assessment and Plan Problems: (1) DVT (deep venous thrombosis) Status: Acute Assessment & Plan: Venous Doppler showed an extensive DVT throughout the left lower extremity from the left common femoral vein into the calf veins. She had much swelling and pitting edema in the entire left leg. The leg was well perfused on exam. The patient was started on Xarelto 15mg PO BID. She worked with Physical and Occupational therapy on ECF. (2) Hyperlipidemia Status: Chronic Assessment & Plan: She is on atorvastatin at home. (3) Depression Status: Chronic Assessment & Plan: She was continued on paroxetine. (4) Dementia Status: Chronic Assessment & Plan: The patient had poor short term memory. She was not on any treatment. She does have a laboratory equipment installer at home for several hours during the day. (5) Cerumen impaction Assessment & Plan: The right ear had cerumen up against the drum, completely occluding canal. The left ear had some wax in canal but was not completely occluded. Debrox was ordered. (6) Reaction at application site Status: Acute Assessment & Plan: The patient has redness surrounding her Pneumovax injection site. No fever, WBC normal. Redness is improving. Continue to monitor. Time Spent on Plan of Care: < 30 min Problem Qualifiers (1) DVT (deep venous thrombosis): Laterality: left (2) Hyperlipidemia: Hyperlipidemia type: mixed hyperlipidemia Qualified Codes: E78.2 - Mixed hyperlipidemia (3) Cerumen impaction: Laterality: bilateral Qualified Codes: H61.23 - Impacted cerumen, bilateral ALO CRUZ MD August 20, 2017 17:01
[2017-08-20] MEDS: ACETAMINOPHEN 325 MG TAB PO PRN (20:42)
[2017-08-20] MEDS: PRAZOSIN HCL 1 MG CAP PO SCH (20:42)
[2017-08-20] MEDS: PARoxetine HCL 20 MG TAB PO SCH (20:42)
[2017-08-20] MEDS: CARBAMIDE PEROX 6.5% OT SOLN EACH EAR SCH ×2 (20:42→20:44)
[2017-08-21 08:00] VITALS: BP 136/73
--- NOTE | 2017-08-21 08:44 | PT ECF NOTE ---
Type of Note: Discharge Summary Primary Medical Diagnosis: L LE DVT Physical Therapy Discharge Date: 08/21/17 SUBJECTIVE: Prior Hospitalization: Pt admitted to [facility] acute care 08/04/17-08/07/17 Prior Level of Function: Pt and pt's son report pt has caregivers present from Friday-Friday 8-2:30 who are present for assisting with house work and IADLs. Pt's caregivers do not assist pt physically with mobility or ADLs. Pt and pt's son report occasional use of a care for community mobility, otherwise, she does not use an assistive device for mobility within the home. Pt has a 4- level bi-level home which she does access all levels using handrail in stairs. Prior Living Status: Multilevel house, see above Community Services: Caregivers as stated above. Home Accessibility: Stairs with rails Equipment Owned: Front wheeled walker, Cane Medical Complications/Past Medical History: Decreased memory. See EMR for additional details. Psychosocial Support: Pt has caregivers as stated above and supportive children. Pain Scale (0-10): Pt unable to rate but does favor L LE due to increased pain. OBJECTIVE: Bed Mobility: Christine Transfers: Christine with RW Gait: Christine/SBA x500' with RW ASSESSMENT: The pt has made significant gains with functional mobility and is demonstrating increased independence and decreased need of assistance from others. Despite short term memory deficits, the patient is demonstrate good sequencing and safety with stair negotiation. It is recommended that the patient utilize [facility] services and continue with private caregiver upon d/c. PT has recommended that pt use RW for all functional mobility. The patient and family are agreeable to this discharge plan. Problem List/Current Limitations: Pain, Decreased activity tolerance, Decreased strength, Generalized weakness, Poor safety awareness, Memory deficits , Decreased problem solving, Confusion Short Term Goals: (goals met) 1. Mod I bed mobility. 2. Mod I transfers. 3. Mod I gait x 150' with least restrictive device. (pt completes with Christine/SBA) 4. Ascend/descend 8 stairs with rail SBA. Wardrobe Technician Goals: Return to prior living arrangements (met) Patient Goals: Return home PLAN: The patient will discharge home with assistance from private caregiver as well as [facility] services. Thank you for this referral. If you have any questions, concerns, or comments about this report or plan, please contact me at . Verenice Harding, PT, DPT MTDD
[2017-08-21] MEDS: CARBAMIDE PEROX 6.5% OT SOLN EACH EAR SCH (09:00)
[2017-08-21] MEDS ORDERED: RIVA20TA PO (09:10)
[2017-08-21] MEDS ORDERED: RIVA15TA PO (09:10)
[2017-08-21] MEDS: RIVAROXABAN 10 MG TAB PO SCH (09:15)
== END 2017-08-21 10:15 | disposition home or self-care (01) | DRG 301 ==
LOC: SWB 11:00
PROVIDERS: ADMIT Internal Medicine; ATTEND Internal Medicine
DX: I82.412 Acute embolism and thrombosis of left femoral vein (principal); I82.432 Acute embolism and thrombosis of left popliteal vein; I82.442 Acute embolism and thrombosis of left tibial vein; I82.492 Acute embolism and thrombosis of other specified deep vein of left lower extremity; F32.9 Major depressive disorder, single episode, unspecified; F03.90 Unspecified dementia, unspecified severity, without behavioral disturbance, psychotic disturbance, mood disturbance, and anxiety; H61.23 Impacted cerumen, bilateral; E78.2 Mixed hyperlipidemia; E04.1 Nontoxic single thyroid nodule; K44.9 Diaphragmatic hernia without obstruction or gangrene; T50.A95A Adverse effect of other bacterial vaccines, initial encounter; Y92.230 Patient room in hospital as the place of occurrence of the external cause; Z88.1 Allergy status to other antibiotic agents; Z23 Encounter for immunization; Z99.81 Dependence on supplemental oxygen; Z87.440 Personal history of urinary (tract) infections
CPT/HCPCS: 36415; 82310; 82374; 82435; 82565; 82947; 84132; 84295; 84520; 85025; 90471; 90732; 97162; 97165

== ENCOUNTER → 2017-11-19 | Outpatient (CLI) | payer MEDICARE, BC ==
[2017-08-07 13:28] VITALS: BMI 31.2
[~2017-11-19] MED LIST changes: +RIV10 PO; +RIVA15TA PO; +RIVA20TA PO; +SERT-184 PO; +SERT25TA90 PO
[2017-11-19 10:42] LABS: PLATELET COUNT, AUTOMATED 246 K/uL (150-450)
== END ==
LOC: LAB 10:21
PROVIDERS: ATTEND Family Medicine
DX: D64.9 Anemia, unspecified (principal)
CPT/HCPCS: 36415; 82040; 82247; 82310; 82374; 82435; 82565; 82947; 84075; 84132; 84155; 84295; 84443; 84450; 84460; 84520; 85025

== ENCOUNTER → 2018-10-15 | Outpatient (CLI) | payer MEDICARE, BC ==
[2017-08-07 13:28] VITALS: BMI 31.2
[2018-10-15 10:56] LABS: PLATELET COUNT, AUTOMATED 228 K/uL (150-450)
== END ==
LOC: LAB 10:20
PROVIDERS: ATTEND Family Medicine
DX: I82.409 Acute embolism and thrombosis of unspecified deep veins of unspecified lower extremity (principal)
CPT/HCPCS: 36415; 82040; 82247; 82310; 82374; 82435; 82565; 82947; 84075; 84132; 84155; 84295; 84450; 84460; 84520; 85025